=== PATIENT | female | born 1930 | race Caucasian/White ===

== ENCOUNTER 2017-02-24 09:28 | Inpatient (IN) | payer MEDICARE, OTHER ==
[2017-02-24] VITALS (11 sets, daily range): BP systolic 120–198; BP diastolic 58–90; PULSE 67–87; RESP 17–24; TEMP 98–99.7; O2SAT 95–97
[~2017-02-24] VITALS: Ht 165.1 cm; Wt 84.0 kg
[~2017-02-24 09:28] MED LIST: AMLO10 PO; CARV12.5 PO; DIGO.125 PO; GABA100C4 PO; GLUCTAB PO; LEVE500 PO; LEVO50TA51 PO; PARO10TA PO; PYRI200T4 PO
--- NOTE | 2017-02-24 09:50 | PD ---
HPI Chief Complaint: Altered Mental Status Time Seen by Provider: 09:33 Travel History International Travel<30 days: No Contact w/Intl Traveler<30days: No Traveled to known affect area: No History of Present Illness HPI 87-year-old female with history of Alzheimer's dementia, diabetes, brought in by ambulance from her retirement for evaluation of depressed mental status. Upon arrival to the emergency department the patient is awake but drowsy. She complains of feeling lousy. She also complains of having abdominal pain. She does not quantify or qualify this pain. She denies chest pain. She says yes when asked if she has shortness of breath. PFSH Past Medical History Heart Rhythm Problems: Yes High Cholesterol: Yes Congestive Heart Failure: Yes Cerebrovascular Accident: Yes Diabetes: Yes Diminished Hearing: No Hypertension: Yes Seizures: Yes Thyroid Disease: Yes Menopausal: Yes Past Surgical History Appendectomy: Yes Cholecystectomy: Yes Genitourinary Surgery: Yes (R nephrectomy) Joint Replacement: Yes ([place] knee replacement) Social History Alcohol Use: No Tobacco Use: No Substance Use: No Allergies-Medications (Allergen,Severity, Reaction): Coded Allergies: Sulfa (Sulfonamide Antibiotics) (Unverified Allergy, Severe, Hives, ) levofloxacin (Unverified Allergy, Severe, N/V, 02/24/17) pregabalin (Unverified Allergy, Intermediate, 02/24/17) Reported Meds & Prescriptions Reported Meds & Active Scripts Active Reported Risperdal (Risperidone) 0.5 Mg Tab 0.5 Mg PO HS Macrobid (Nitrofurantoin Monoh/Nitrofur Macro) 100 Mg Cap 100 Mg PO BID 7 Days Keppra (Levetiracetam) 500 Mg Tab 500 Mg PO BID Neurontin (Gabapentin) 100 Mg Cap 100 Mg PO HS Lanoxin (Digoxin) 125 Mcg Tablet 125 Mcg PO DAILY Coreg (Carvedilol) 6.25 Mg Tab 6.25 Mg PO BID Take with meals Bupropion HCl 100 Mg Tab 50 Mg PO DAILY Tramadol (Tramadol HCl) 50 Mg Tab 50 Mg PO BID PRN Milk of Magnesia Liq (Magnesium Hydroxide) 400 Mg/5 Ml Susp 30 Ml PO Q4HR PRN Tylenol (Acetaminophen) 325 Mg Tab 650 Mg PO Q4H PRN Ditropan XL 24 HR (Oxybutynin Chloride) 10 Mg Tab 10 Mg PO DAILY I-Argelia (Multiple Vitamins W/ Minerals) 1,000-60-2 Tab 1 Tab PO DAILY Namzaric (Memantine-Donepezil) 28-10 Mg Cap 1 Cap PO HS Remeron (Mirtazapine) 30 Mg Tab 30 Mg PO HS Cozaar (Losartan Potassium) 25 Mg Tab 25 Mg PO DAILY Lisinopril 10 Mg Tab 10 Mg PO DAILY Levothyroxine (Levothyroxine Sodium) 100 Mcg Tab 100 Mcg PO DAILY Lantus Inj (Insulin Glargine) 1,000 Unit/10 Ml Vial 65 Units SQ HS Novolog Inj (Insulin Aspart) 1,000 Unit/10 Ml Vial 10 Units SQ BEFORE MEALS Warfarin 10 Mg Tab 10 Mg PO SUNDAY Warfarin 5 Mg Tab 5 Mg PO Take 1 tablet (5mg) on Sunday,Sunday,Sunday,,Sunday and Sunday Imodium A-D (Loperamide HCl) 2 Mg Capsule 4 Mg PO INITIAL DOSE PRN After initial dose, give 1 cap (2mg) after each loose stool, NTE 8 caps/24hrs Glucagen Hypokit Inj Kit (Glucagon (Rdna) Inj Kit) 1 Mg Kit 1 Mg IM ONCE PRN Enema Disposable (Sodium Phosphates) 19 Gram-7 Gram/118 Ml Jennifer 1 Applic RECTAL PRN Dulcolax Supp (Bisacodyl) 10 Mg Supp 10 Mg RECTAL DAILY PRN Antacid Anti-Gas Regular Liq (Rchistyn-Amqhokcul-Jybdsyuvuld Liq) 200-200-20 Mg/ 5 Ml Susp 30 Ml PO Q4HR PRN Take between meals or as directed. Shake well. Do not exceed 120 mL/24 hrs. Xanax (Alprazolam) 0.25 Mg Tab 0.25 Mg PO TID PRN Review of Systems Except as stated in HPI: all other systems reviewed are Neg Physical Exam Narrative GENERAL: Well-developed, well-nourished, elderly-appearing female, awake, drowsy , no apparent distress. SKIN: Focused skin assessment warm/dry. Pressure sores on bilateral buttocks and sacrum, stage II, no warmth, no erythema, no purulent drainage. HEAD: Atraumatic. Normocephalic. EYES: Pupils equal and round. No scleral icterus. Bilateral purulent drainage. ENT: Mucous membranes pink and moist. NECK: Trachea midline. No JVD. No nuchal rigidity. CARDIOVASCULAR: Regular rate and rhythm. RESPIRATORY: No accessory muscle use. Clear to auscultation. Breath sounds equal bilaterally. GASTROINTESTINAL: Abdomen soft, nondistended. Mild diffuse tenderness without peritoneal signs. Normal bowel sounds. MUSCULOSKELETAL: No obvious deformities. No clubbing. No cyanosis. No edema. NEUROLOGICAL: Awake, drowsy. No obvious cranial nerve deficits. Motor grossly within normal limits. Normal speech. PSYCHIATRIC: Appropriate mood and affect; insight and judgment normal. Data Data Last Documented VS Vital Signs Date Time Temp Pulse Resp B/P (MAP) Pulse Ox O2 Delivery O2 Flow Rate FiO2 02/24/17 11:00 80 20 125/58 (80) 96 Room Air 02/24/17 09:47 2.00 02/24/17 09:35 99.7 Orders Orders Electrocardiogram (02/24/17 09:34) Complete Blood Count With Diff (02/24/17 09:34) Comprehensive Metabolic Panel (02/24/17 09:34) Prothrombin Time / Inr (Pt) (02/24/17 09:34) Act Partial Throm Time (Ptt) (02/24/17 09:34) Lactic Acid Sepsis Protocol (02/24/17 09:34) Urinalysis - C+S If Indicated (02/24/17 09:34) Influenzae A/B Antigen (02/24/17 09:34) Blood Culture (02/24/17 09:34) Chest, Single Ap (02/24/17 09:34) Ecg Monitoring (02/24/17 09:34) Iv Access Insert/Monitor (02/24/17 09:34) Oximetry (02/24/17 09:34) Ct Brain W/O Iv Contrast(Rout) (02/24/17 ) Cath For Specimen (02/24/17 09:34) Ct Abd/Pel W Iv Contrast(Rout) (02/24/17 ) Ceftriaxone Inj (Rocephin Inj) (02/24/17 10:30) Azithromycin Inj (Zithromax Inj) (02/24/17 10:30) Urine Culture (02/24/17 09:55) Iodixanol 320 Inj (Rad Ct) (Visipaque 32 (02/24/17 11:56) Lipase (02/24/17 12:31) Ceftriaxone Inj (Rocephin Inj) (02/24/17 12:45) Azithromycin Inj (Zithromax Inj) (02/24/17 12:45) Labs Laboratory Tests Test 02/24/17 09:55 White Blood Count 9.5 TH/MM3 Red Blood Count 3.50 MIL/MM3 Hemoglobin 11.3 GM/DL Hematocrit 32.7 % Mean Corpuscular Volume 93.2 FL Mean Corpuscular Hemoglobin 32.2 PG Mean Corpuscular Hemoglobin Concent 34.6 % Red Cell Distribution Width 12.8 % Platelet Count 248 TH/MM3 Mean Platelet Volume 8.1 FL Neutrophils (%) (Auto) 69.1 % Lymphocytes (%) (Auto) 21.8 % Monocytes (%) (Auto) 8.1 % Eosinophils (%) (Auto) 0.4 % Basophils (%) (Auto) 0.6 % Neutrophils # (Auto) 6.6 TH/MM3 Lymphocytes # (Auto) 2.1 TH/MM3 Monocytes # (Auto) 0.8 TH/MM3 Eosinophils # (Auto) 0.0 TH/MM3 Basophils # (Auto) 0.1 TH/MM3 CBC Comment DIFF FINAL Differential Comment Prothrombin Time 17.0 SEC Prothromb Time International Ratio 1.5 RATIO Activated Partial Thromboplast Time 28.7 SEC Urine Color YELLOW Urine Turbidity CLOUDY Urine pH 8.0 Urine Specific Dana 1.014 Urine Protein 30 mg/dL Urine Glucose (UA) NEG mg/dL Urine Ketones NEG mg/dL Urine Occult Blood SMALL Urine Nitrite NEG Urine Bilirubin NEG Urine Urobilinogen LESS THAN 2.0 MG/DL Urine Leukocyte Esterase LARGE Urine RBC 14 /hpf Urine WBC /hpf Urine WBC Clumps MANY Urine Squamous Epithelial Cells 1 /hpf Urine Triple Phosphate Crystals MANY /hpf Urine Bacteria MANY /hpf Urine Mucus MOD /lpf Microscopic Urinalysis Comment CATH-CULTURE IND Blood Urea Nitrogen 51 MG/DL Creatinine 1.44 MG/DL Random Glucose 65 MG/DL Total Protein 6.6 GM/DL Albumin 2.3 GM/DL Calcium Level 9.3 MG/DL Alkaline Phosphatase 116 U/L Aspartate Amino Transf (AST/SGOT) 75 U/L Alanine Aminotransferase (ALT/SGPT) 59 U/L Total Bilirubin 0.3 MG/DL Sodium Level 142 MEQ/L Potassium Level 4.8 MEQ/L Chloride Level 111 MEQ/L Carbon Dioxide Level 26.9 MEQ/L Anion Gap 4 MEQ/L Estimat Glomerular Filtration Rate 34 ML/MIN Lactic Acid Level 1.2 mmol/L [facility] Medical Decision Making Medical Screen Exam Complete: Yes Emergency Medical Condition: Yes Medical Record Reviewed: Yes Differential Diagnosis Sepsis, pneumonia, UTI, acute intra-abdominal process, metabolic abnormality, meningitis/encephalitis less likely Narrative Course Vital signs show heart rate 87, blood pressure 120/58, pulse ox 95% on room air , rectal temp of 99.7F. CBC: WBC 9.5, hemoglobin 11.3, hematocrit 32.7, platelets 248. CMP is remarkable for BUN 51, creatinine 1.44, GFR 34, random glucose 65, AST 75 , ALT 59. UA is grossly positive for UTI. Chest x-ray: CONCLUSION: 1. Minimal bibasilar patchiness consistent with atelectasis and/or mild developing infiltrates. Clinical correlation is recommended. 2. Degenerative changes and scoliosis of the thoracolumbar spine. CT head: CONCLUSION: 1. Diffuse cerebral atrophy. 2. Mild to moderate periventricular and subcortical white matter small vessel ischemic changes bilaterally. 3. No acute infarct, acute hemorrhage, mass effect or extra-axial fluid collections. CT abdomen pelvis: CONCLUSION: 1. Apparent dilatation of the main pancreatic duct in the region of the body and tail with focus of high density at the transition point raising the possibility of calcification or clip. Correlation with pancreatic enzymes may be helpful. 2. Uncomplicated sigmoid diverticulosis. 3. Multilevel spinal stenoses, degenerative changes and scoliosis of the lumbar spine. The patient was written for IV Rocephin and IV azithromycin. She will be admitted for further treatment and evaluation of altered mental status, UTI. Case discussed with hospitalist Dr. Fung who will admit the patient to her service. Diagnosis Primary Impression: Altered mental status Qualified Codes: R41.82 - Altered mental status, unspecified Additional Impression: UTI (urinary tract infection) Qualified Codes: N39.0 - Urinary tract infection, site not specified; R31.9 - Hematuria, unspecified Admitting Information Admitting Physician Requests: Francisco Elias MD Feb 24, 2017 09:50
--- NOTE | 2017-02-24 10:05 | RADRPT ---
EXAM DATE/TIME: 02/24/2017 09:36 [facility] COMPARISON: No previous studies available for comparison. INDICATIONS : Weakness. MEDICAL HISTORY : None. SURGICAL HISTORY : None. ENCOUNTER: Initial ACUITY: 1 day PAIN SCORE: Non-responsive. LOCATION: Bilateral chest FINDINGS: The heart and mediastinal structures are normal. Minimal bibasilar patchiness is noted consistent wi th atelectasis and/or developing infiltrates. The pulmonary vascular pattern is normal. Degenerativ e changes and scoliosis of the thoracolumbar spine are noted. CONCLUSION: 1. Minimal bibasilar patchiness consistent with atelectasis and/or mild developing infiltrates. Clin ical correlation is recommended. 2. Degenerative changes and scoliosis of the thoracolumbar spine. Emamnuel Brown MD on February 24, 2017 at 9:57 Board Certified Radiologist. This report was verified electronically.
[2017-02-24 10:15] LABS: AUTOMATED NEUTROPHIL # 6.6 TH/MM3 (1.8-7.7); BASOPHIL # 0.1 TH/MM3 (0-0.2); BASOPHIL % 0.6 % (0.0-2.0); EOSINOPHIL % 0.4 % (0.0-4.0); HEMATOCRIT 32.7 % (35.0-46.0); HEMO FLAGS DIFF FINAL; LYMPH % 21.8 % (9.0-44.0); LYMPHOCYTE # 2.1 TH/MM3 (1.0-4.8); MEAN CELL VOLUME 93.2 FL (80.0-100.0); MEAN CORPUSCULAR HEMOGLOBIN 32.2 PG (27.0-34.0); MEAN CORPUSCULAR HGB CONC 34.6 % (32.0-36.0); MONO % 8.1 % (0.0-8.0); NEUT % 69.1 % (16.0-70.0); PLATELET COUNT 248 TH/MM3 (150-450); RED CELL DISTRIBUTION WIDTH 12.8 % (11.6-17.2); WHITE BLOOD COUNT 9.5 TH/MM3 (4.0-11.0)
[2017-02-24 10:29] LABS: APTT (PATIENT) 28.7 SEC (24.3-30.1); INTERNATIONAL NORMALIZED RATIO 1.5 RATIO
[2017-02-24] MEDS ORDERED: AZITHROMYCIN INJ 500 MG in SODIUM CHLOR 0.9% 250 ML INJ 250 ML IV ONE (10:30)
[2017-02-24] MEDS ORDERED: cefTRIAXone INJ 1,000 MG in SODIUM CHLORIDE 0.9% INJ 100 ML IV ONE (10:30)
[2017-02-24 10:31] LABS: BACTERIA, URINE MANY /hpf; BLOOD, URINE SMALL (NEG); COMMENT (UR) CATH-CULTURE IND; CULTURE IF INDICATED CATH CULTURE IND; GLUCOSE,URINE NEG (NEG); KETONE, URINE NEG (NEG); MUCUS URINE MOD /lpf (OCC); NITRITE,URINE NEG (NEG); SQUAMOUS EPITHELIAL CELL URINE 1 /hpf (0-5); TRIPLE PHOSPHATE CRYSTAL,URINE MANY /hpf
[2017-02-24 10:35] LABS: URINE COLOR YELLOW (YELLW/STRAW)
[2017-02-24 10:53] LABS: ALT (GPT) 59 U/L (10-53); ANION GAP 4 MEQ/L (5-15); AST (GOT) 75 U/L (15-37); BICARBONATE 26.9 MEQ/L (21.0-32.0); BLOOD UREA NITROGEN 51 MG/DL (7-18); CHLORIDE 111 MEQ/L (98-107); GLOMERULAR FILTRATION RATE 34 ML/MIN (>89); POTASSIUM 4.8 MEQ/L (3.5-5.1); SODIUM (NA) 142 MEQ/L (136-145)
[2017-02-24 10:55] LABS: ALKALINE PHOSPHATASE 116 U/L (45-117); TOTAL BILIRUBIN ADULT 0.3 MG/DL (0.2-1.0)
[2017-02-24] MEDS ORDERED: MACR100C2 PO (11:10)
[2017-02-24] MEDS ORDERED: TRAM50TA PO (11:10)
[2017-02-24] MEDS ORDERED: REME30TA PO (11:10)
[2017-02-24] MEDS ORDERED: GLUCINJ IM (11:10)
[2017-02-24] MEDS ORDERED: BUPR100T4 PO (11:10)
[2017-02-24] MEDS ORDERED: NEUR100C PO (11:10)
[2017-02-24] MEDS ORDERED: RISP0.5T25 PO (11:10)
[2017-02-24] MEDS ORDERED: ANTASUS13 PO (11:10)
[2017-02-24] MEDS ORDERED: WARF-23 PO (11:10)
[2017-02-24] MEDS ORDERED: ALPR.25 PO (11:10)
[2017-02-24] MEDS ORDERED: LANO0.12 PO (11:10)
[2017-02-24] MEDS ORDERED: LEVE500 PO (11:10)
[2017-02-24] MEDS ORDERED: TYLE325T PO (11:10)
[2017-02-24] MEDS ORDERED: WARF-22 PO (11:10)
[2017-02-24] MEDS ORDERED: COZA25TA PO (11:10)
[2017-02-24] MEDS ORDERED: LEVO100T5 PO (11:10)
[2017-02-24] MEDS ORDERED: MEMA1CAP2 PO (11:10)
[2017-02-24] MEDS ORDERED: I-VITAB2 PO (11:10)
[2017-02-24] MEDS ORDERED: DULC10SU3 RECTAL (11:10)
[2017-02-24] MEDS ORDERED: MILKSUS PO (11:10)
[2017-02-24] MEDS ORDERED: CARV6.25 PO (11:10)
[2017-02-24] MEDS ORDERED: LOPE-1 PO (11:10)
[2017-02-24] MEDS ORDERED: LANTUS2P SQ (11:10)
[2017-02-24] MEDS ORDERED: NOVOLOGP2 SQ (11:10)
[2017-02-24] MEDS ORDERED: LISI10TA3 PO (11:10)
[2017-02-24] MEDS ORDERED: OXYBXL10 PO (11:10)
[2017-02-24] MEDS ORDERED: ENEMENE5 RECTAL (11:10)
[2017-02-24] MEDS ORDERED: IODIXANOL 320 MG/ML 10 ML VIAL (for Rad CT) IVCONTRAST ONE (11:56)
--- NOTE | 2017-02-24 12:02 | RADRPT ---
EXAM DATE/TIME: 02/24/2017 11:38 [facility] COMPARISON: No previous studies available for comparison. INDICATIONS : ALtered mental status. RADIATION DOSE: 54.84 CTDIvol (mGy) MEDICAL HISTORY : Seizures. Hypertension. SURGICAL HISTORY : Appendectomy. Cholecystectomy. ENCOUNTER: Initial ACUITY: 1 day PAIN SCALE: 0/10 LOCATION: cranial TECHNIQUE: Multiple contiguous axial images were obtained of the head. Using automated exposure control and adjustment of the mA and/or kV according to patient size, radiation dose was kept as low as reasonably achievable to obtain optimal diagnostic quality images. DICOM format image data is av ailable electronically for review and comparison. FINDINGS: CEREBRUM: Diffuse cerebral atrophy is noted. Mild to moderate periventricular and subcortical whi te matter small vessel ischemic changes are noted bilaterally. No evidence of midline shift, mass les ion, hemorrhage or acute infarction. No extra-axial fluid collections are seen. POSTERIOR FOSSA: The cerebellum and brainstem are intact. The 4th ventricle is midline. The cer ebellopontine angle is unremarkable. EXTRACRANIAL: The visualized portion of the orbits is intact. SKULL: The calvaria is intact. No evidence of skull fracture. CONCLUSION: 1. Diffuse cerebral atrophy. 2. Mild to moderate periventricular and subcortical white matter small vessel ischemic changes bilate rally. 3. No acute infarct, acute hemorrhage, mass effect or extra-axial fluid collections. Emmanuel Brown MD on February 24, 2017 at 11:58 Board Certified Radiologist. This report was verified electronically.
--- NOTE | 2017-02-24 12:22 | RADRPT ---
EXAM DATE/TIME: 02/24/2017 11:45 [facility] COMPARISON: No previous studies available for comparison. INDICATIONS : Abdomen pain. IV CONTRAST: 50 cc Visipaque (iodixanol) IV ORAL CONTRAST: No oral contrast ingested. RADIATION DOSE: 16.94 CTDIvol (mGy) MEDICAL HISTORY : Congestive heart failure. Stroke SURGICAL HISTORY : Appendectomy. Cholecystectomy. ENCOUNTER: Initial ACUITY: 1 day PAIN SCALE: 4/10 LOCATION: Bilateral abdomen. TECHNIQUE: Volumetric scanning of the abdomen and pelvis was performed. Using automated exposure control and ad justment of the mA and/or kV according to patient size, radiation dose was kept as low as reasonably achievable to obtain optimal diagnostic quality images. DICOM format image data is available electro nically for review and comparison. FINDINGS: There is apparent dilatation of the pancreatic duct in the body and tail of indeterminate etiology. There is a high density focus at the site of the dilated duct raising the possibility of calcificatio n or possible metallic clip. The remainder of the head and body of the pancreas are unremarkable. T he liver is unremarkable without focal mass or biliary ductal dilatation. The gallbladder has been r esected. The spleen is normal. The patient is status post left nephrectomy. The right kidney is un remarkable without mass or hydronephrosis. The adrenal glands are unremarkable. The abdominal aorta is calcified but is not aneurysmally dilated. The inferior vena cava is normal. There is no paraao rtic, retroperitoneal or mesenteric lymphadenopathy. Ventral abdominal wall hernia repair is noted. Degenerative changes and scoliosis of the lumbar spine are noted. Multilevel spinal stenoses are no ajith within the lumbar spine. The urinary bladder is unremarkable. No bowel obstruction is noted. U ncomplicated sigmoid diverticulosis is noted. The uterus is unremarkable. CONCLUSION: 1. Apparent dilatation of the main pancreatic duct in the region of the body and tail with focus of high density at the transition point raising the possibility of calcification or clip. Correlation w ith pancreatic enzymes may be helpful. 2. Uncomplicated sigmoid diverticulosis. 3. Multilevel spinal stenoses, degenerative changes and scoliosis of the lumbar spine. Emmanuel Brown MD on February 24, 2017 at 12:05 Board Certified Radiologist. This report was verified electronically.
[2017-02-24] MEDS ORDERED: GLUCAGON 1 MG IM PRN (12:45)
[2017-02-24] MEDS ORDERED: ACETAMINOPHEN 325 MG TAB PO PRN ×2 (12:45→13:00)
[2017-02-24] MEDS ORDERED: ALUMINUM/MAGNESIUM/SIMETH 30 ML CUP PO PRN (12:45)
[2017-02-24] MEDS ORDERED: BISACODYL 10 MG SUPP RECTAL PRN ×2 (12:45→13:00)
[2017-02-24] MEDS ORDERED: MAGNESIUM HYDROXIDE SUSP 30 ML CUP PO PRN ×2 (12:45→13:00)
[2017-02-24] MEDS ORDERED: LACTULOSE SYRUP 20 GM/30 ML CUP PO PRN (13:00)
[2017-02-24] MEDS ORDERED: SODIUM CHLORIDE 0.9% FLUSH 10 ML FLUSH IV FLUSH PRN (13:00)
[2017-02-24] MEDS ORDERED: GLUCAGON 1 MG/ML VIAL OTHER PRN (13:00)
[2017-02-24] MEDS ORDERED: NALOXONE HCL 0.4 MG/ML AMP IV PUSH PRN (13:00)
[2017-02-24] MEDS ORDERED: ONDANSETRON HCL 4 MG/2 ML VIAL IVP PRN (13:00)
[2017-02-24] MEDS ORDERED: SENNOSIDES 8.6 MG TAB PO PRN (13:00)
[2017-02-24] MEDS ORDERED: DEXTROSE 50% IN WATER 50 ML VIAL(D50) IV PUSH PRN (13:00)
[2017-02-24] MEDS ORDERED: PILL SPLITTER OTHER PRN (13:15)
--- NOTE | 2017-02-24 13:38 | HHI.HP ---
[facility] Raj[facility] Romeo M.D. Admission Diagnosis AMS, UTI Diagnoses: Chief Complaint: altered mental status Travel History International Travel<30 Days: No Contact w/Intl Traveler <30 Da: No Traveled to Known Affected Are: No History of Present Illness 87-year-old female with history of Alzheimer's dementia, diabetes, CVA, HTN, HLD , Hypothyroidism, seizure disorder who was brought to the ED by ambulance from her detention for evaluation of depressed mental status. Upon arrival to the emergency department the patient was noted awake but drowsy. She complains of feeling lousy. She also complains of having lower abdominal pain. Denies having any urinary complaints. She does not quantify or qualify this pain. She denies chest pain. She says yes when asked if she has shortness of breath. Denies having cough. No fever or chills. Says she doesn't know why she is here. Says jayant is uslually walking with a walker at the detention, but now she feels tired and can't walk. She is alert and oriented by name, , place. History obtained from patient, records. No other complaints at this time. Review of Systems ROS Limitations: Clinical Condition, Altered Mental Status Except as stated in HPI: all other systems reviewed are Neg Past Family Social History Past Medical History Alzheimer's dementia, diabetes, CVA, HTN, HLD, Hypothyroidism, seizure disorder Past Surgical History R nephrectomy, appendectomy, cholecystectomy, Bilateral knee replacement Reported Medications Reported Meds & Active Scripts Active Reported Risperdal (Risperidone) 0.5 Mg Tab 0.5 Mg PO HS Macrobid (Nitrofurantoin Monoh/Nitrofur Macro) 100 Mg Cap 100 Mg PO BID 7 Days Keppra (Levetiracetam) 500 Mg Tab 500 Mg PO BID Neurontin (Gabapentin) 100 Mg Cap 100 Mg PO HS Lanoxin (Digoxin) 125 Mcg Tablet 125 Mcg PO DAILY Coreg (Carvedilol) 6.25 Mg Tab 6.25 Mg PO BID Take with meals Bupropion HCl 100 Mg Tab 50 Mg PO DAILY Tramadol (Tramadol HCl) 50 Mg Tab 50 Mg PO BID PRN Milk of Magnesia Liq (Magnesium Hydroxide) 400 Mg/5 Ml Susp 30 Ml PO Q4HR PRN Tylenol (Acetaminophen) 325 Mg Tab 650 Mg PO Q4H PRN Ditropan XL 24 HR (Oxybutynin Chloride) 10 Mg Tab 10 Mg PO DAILY I-Argelia (Multiple Vitamins W/ Minerals) 1,000-60-2 Tab 1 Tab PO DAILY Namzaric (Memantine-Donepezil) 28-10 Mg Cap 1 Cap PO HS Remeron (Mirtazapine) 30 Mg Tab 30 Mg PO HS Cozaar (Losartan Potassium) 25 Mg Tab 25 Mg PO DAILY Lisinopril 10 Mg Tab 10 Mg PO DAILY Levothyroxine (Levothyroxine Sodium) 100 Mcg Tab 100 Mcg PO DAILY Lantus Inj (Insulin Glargine) 1,000 Unit/10 Ml Vial 65 Units SQ HS Novolog Inj (Insulin Aspart) 1,000 Unit/10 Ml Vial 10 Units SQ BEFORE MEALS Warfarin 10 Mg Tab 10 Mg PO SUNDAY Warfarin 5 Mg Tab 5 Mg PO Take 1 tablet (5mg) on Sunday,Sunday,Sunday,,Sunday and Sunday Imodium A-D (Loperamide HCl) 2 Mg Capsule 4 Mg PO INITIAL DOSE PRN After initial dose, give 1 cap (2mg) after each loose stool, NTE 8 caps/24hrs Glucagen Hypokit Inj Kit (Glucagon (Rdna) Inj Kit) 1 Mg Kit 1 Mg IM ONCE PRN Enema Disposable (Sodium Phosphates) 19 Gram-7 Gram/118 Ml Jennifer 1 Applic RECTAL PRN Dulcolax Supp (Bisacodyl) 10 Mg Supp 10 Mg RECTAL DAILY PRN Antacid Anti-Gas Regular Liq (Gpewciin-Xocbmbfar-Evqwbxvvbcc Liq) 200-200-20 Mg/ 5 Ml Susp 30 Ml PO Q4HR PRN Take between meals or as directed. Shake well. Do not exceed 120 mL/24 hrs. Xanax (Alprazolam) 0.25 Mg Tab 0.25 Mg PO TID PRN Allergies: Coded Allergies: Sulfa (Sulfonamide Antibiotics) (Unverified Allergy, Severe, Hives, ) levofloxacin (Unverified Allergy, Severe, N/V, 02/24/17) pregabalin (Unverified Allergy, Intermediate, 02/24/17) Family History Mother with diabetes, HTN, HLD Social History Denies tobacco use, EtOh use or illicit drug use Physical Exam Vital Signs Vital Signs Date Time Temp Pulse Resp B/P (MAP) Pulse Ox O2 Delivery O2 Flow Rate FiO2 02/24/17 11:00 80 20 125/58 (80) 96 Room Air 02/24/17 09:47 98 24 98 Nasal Cannula 2.00 02/24/17 09:46 95 Room Air 02/24/17 09:35 99.7 87 24 120/58 (78) 95 Physical Exam GENERAL: This is a well-nourished, well-developed patient, in no apparent distress. SKIN: No rashes, ecchymoses or lesions. Cool and dry. HEAD: Atraumatic. Normocephalic. No temporal or scalp tenderness. EYES: Pupils equal round and reactive. Extraocular motions intact. No scleral icterus. No injection or drainage. ENT: Nose without bleeding, purulent drainage or septal hematoma. Throat without erythema, tonsillar hypertrophy or exudate. Uvula midline. Airway patent. NECK: Trachea midline. No JVD or lymphadenopathy. Supple, nontender, no meningeal signs. CARDIOVASCULAR: Regular rate and rhythm without murmurs, gallops, or rubs. RESPIRATORY: Clear to auscultation. Breath sounds equal bilaterally. No wheezes , rales, or rhonchi. GASTROINTESTINAL: Abdomen soft, non-tender, nondistended. No hepato-splenomegaly , or palpable masses. No guarding. MUSCULOSKELETAL: Extremities without clubbing, cyanosis, or edema. No joint tenderness, effusion, or edema noted. No calf tenderness. Negative Homans sign bilaterally. NEUROLOGICAL: Awake and alert. Cranial nerves II through XII intact. Motor and sensory grossly within normal limits. Five out of 5 muscle strength in all muscle groups. Normal speech. Laboratory Laboratory Tests Test 02/24/17 09:55 White Blood Count 9.5 Red Blood Count 3.50 Hemoglobin 11.3 Hematocrit 32.7 Mean Corpuscular Volume 93.2 Mean Corpuscular Hemoglobin 32.2 Mean Corpuscular Hemoglobin Concent 34.6 Red Cell Distribution Width 12.8 Platelet Count 248 Mean Platelet Volume 8.1 Neutrophils (%) (Auto) 69.1 Lymphocytes (%) (Auto) 21.8 Monocytes (%) (Auto) 8.1 Eosinophils (%) (Auto) 0.4 Basophils (%) (Auto) 0.6 Neutrophils # (Auto) 6.6 Lymphocytes # (Auto) 2.1 Monocytes # (Auto) 0.8 Eosinophils # (Auto) 0.0 Basophils # (Auto) 0.1 CBC Comment DIFF FINAL Differential Comment Prothrombin Time 17.0 Prothromb Time International Ratio 1.5 Activated Partial Thromboplast Time 28.7 Urine Color YELLOW Urine Turbidity CLOUDY Urine pH 8.0 Urine Specific [place] 1.014 Urine Protein 30 Urine Glucose (UA) NEG Urine Ketones NEG Urine Occult Blood SMALL Urine Nitrite NEG Urine Bilirubin NEG Urine Urobilinogen LESS THAN 2.0 Urine Leukocyte Esterase LARGE Urine RBC 14 Urine WBC Urine WBC Clumps MANY Urine Squamous Epithelial Cells 1 Urine Triple Phosphate Crystals MANY Urine Bacteria MANY Urine Mucus MOD Microscopic Urinalysis Comment CATH-CULTURE IND Blood Urea Nitrogen 51 Creatinine 1.44 Random Glucose 65 Total Protein 6.6 Albumin 2.3 Calcium Level 9.3 Alkaline Phosphatase 116 Aspartate Amino Transf (AST/SGOT) 75 Alanine Aminotransferase (ALT/SGPT) 59 Total Bilirubin 0.3 Sodium Level 142 Potassium Level 4.8 Chloride Level 111 Carbon Dioxide Level 26.9 Anion Gap 4 Estimat Glomerular Filtration Rate 34 Lactic Acid Level 1.2 Lipase 70 Date/Time Source Procedure Growth Status 02/24/17 09:55 Blood Peripheral Aerobic Blood Culture Pending Received 02/24/17 09:55 Blood Peripheral Anaerobic Blood Culture Pending Received 02/24/17 10:05 Nasal Washing Influenza Types A,B Antigen (TARYN) - Final NEGATIVE FOR FLU A AND B ANTIGEN.... Complete 02/24/17 09:55 Urine Catheterized Urine Urine Culture Pending Received Result Diagram: 02/24/17 0955 02/24/1755 Imaging Last Impressions Chest X-Ray 02/24/17 0934 Signed Impressions: Service Date/Time: Friday, February 24, 2017 09:36 - CONCLUSION: 1. Minimal bibasilar patchiness consistent with atelectasis and/or mild developing infiltrates. Clinical correlation is recommended. 2. Degenerative changes and scoliosis of the thoracolumbar spine. Emmanuel Brown MD Head CT 02/24/17 0000 Signed Impressions: Service Date/Time: Friday, February 24, 2017 11:38 - CONCLUSION: 1. Diffuse cerebral atrophy. 2. Mild to moderate periventricular and subcortical white matter small vessel ischemic changes bilaterally. 3. No acute infarct, acute hemorrhage, mass effect or extra-axial fluid collections. MD Jc Carter VTE Risk Assessment Capestheri VTE Risk Assessment: Mod/High Risk (score >= 2) Caprini Risk Assessment Model Point Value = 1 Point Value = 2 Point Value = 3 Point Value = 5 Age 41-60 Minor surgery BMI > 25 kg/m2 Swollen legs Varicose veins or History of unexplained or recurrent spontaneous Oral contraceptives or hormone replacement Sepsis (< 1 month) Serious lung disease, including pneumonia (< 1 month) Abnormal pulmonary function Acute myocardial infarction Congestive heart failure (< 1 month) History of inflammatory bowel disease Medical patient at bed rest Age 61-74 Arthroscopic surgery Major open surgery (> 45 min) Laparoscopic surgery (> 45 min) Malignancy Confined to bed (> 72 hours) Immobilizing plaster cast Central venous access Age >= 75 History of VTE Family history of VTE Factor V Leiden Prothrombin [id number] Lupus anticoagulant Anticardiolipin antibodies Elevated serum homocysteine Heparin-induced thrombocytopenia Other congenital or acquired thrombophilia Stroke (< 1 month) Elective arthroplasty Hip, pelvis, or leg fracture Acute spinal cord injury (< 1 month) Prophylaxis Regimen Total Risk Factor Score Risk Level Prophylaxis Regimen 0-1 Low Early ambulation 2 Moderate Order ONE of the following: *Sequential Compression Device (SCD) *Heparin 5000 units SQ BID 3-4 Higher Order ONE of the following medications: *Heparin 5000 units SQ TID *Enoxaparin/Lovenox 40 mg SQ daily (WT < 150 kg, CrCl > 30 mL/min) *Enoxaparin/Lovenox 30 mg SQ daily (WT < 150 kg, CrCl > 10-29 mL/min) *Enoxaparin/Lovenox 30 mg SQ BID (WT < 150 kg, CrCl > 30 mL/min) AND/OR *Sequential Compression Device (SCD) 5 or more Highest Order ONE of the following medications: *Heparin 5000 units SQ TID (Preferred with Epidurals) *Enoxaparin/Lovenox 40 mg SQ daily (WT < 150 kg, CrCl > 30 mL/min) *Enoxaparin/Lovenox 30 mg SQ daily (WT < 150 kg, CrCl > 10-29 mL/min) *Enoxaparin/Lovenox 30 mg SQ BID (WT < 150 kg, CrCl > 30 mL/min) AND *Sequential Compression Device (SCD) Assessment and Plan Assessment and Plan Acute encephalopathy 2/2 infection Pneumonia UTI DONOVAN/ dehydration No signs of sepsis UA is grossly positive for UTI. Chest x-ray reviewed minimal bibasilar patchiness poss mild developing infiltrates. Scoliosis of the thoracolumbar spine CT head reviewed with diffuse cerebral atrophy. Mild to moderate periventricular. CT head reviewed diffuse cerebral atrophy. No acute infarct, no hemorrhage. Mild to moderate periventricular and subcortical white matter vessel ischemic changes bilaterally. CT abdomen and pelvis reviewed dilatation of the main pancreatic duct in the region of the body and tail focus of hyperdensity of the transition point raising the possibility of calcification or click. ACUTE sigmoid diverticulosis. Multilevel spinal stenosis, degenerative changes and scoliosis of the lumbar spine. Urine cultures are pending. Blood cultures sent and pending Started on Rocephin and azithromycin IV antibiotics. Oxygen supplement if needed, keep oxygen saturation more than 94%. Monitor vital signs closely Start gentle IV fluids, monitor kidney function, avoid nephrotoxins Selective old Resume home medications. Patient is also on Coumadin and monitor INR level History of CVA and seizures. Resume home medications Diabetes mellitus insulin-dependent restart home Levemir, insulin sliding scale , Accu-Cheks. Monitor blood sugar closely and adjust insulin as needed. Hypothyroidism. Resume home medications DVT prophylaxis patient is on Coumadin and monitor INR. Discussed Condition With Patient, nurse, ED physician Dimple Campbell MD Feb 24, 2017 13:37
[2017-02-24] MEDS: WARFARIN SOD 5 MG TAB PO SCH (15:12)
[2017-02-24] MEDS: SODIUM CHLOR 0.9% 1000 ML INJ 1,000 ML IV SCH (15:13)
[2017-02-24] MEDS: INSULIN ASPART SUPPLEMENTAL SCALE SQ SCH ×2 (17:00→20:58)
[2017-02-24] MEDS: cloNIDine HCL 0.1 MG TAB PO PRN (17:49)
[2017-02-24] MEDS ORDERED: hydrALAZINE HCL 20 MG/ML VIAL IV PUSH PRN (18:15)
[2017-02-24] MEDS ORDERED: hydrALAZINE HCL 50 MG TAB PO ONE (19:30)
[2017-02-24] MEDS: SODIUM CHLORIDE 0.9% FLUSH 10 ML FLUSH IV FLUSH SCH (20:35)
[2017-02-24] MEDS ORDERED: INSULIN DETEMIR 100 UNITS/ML VIAL SQ SCH (21:00)
[2017-02-24] MEDS ORDERED: INSULIN GLARGINE 1,000 UNITS/10 ML VIAL SQ SCH (21:00)
[2017-02-24] MEDS ORDERED: [UNRECOGNIZED DRUG - OTHER] PO SCH (21:00)
[2017-02-24] MEDS ORDERED: MEMANTINE DONEPEZIL PO SCH (21:00)
[2017-02-24] MEDS: GABAPENTIN 100 MG CAP PO SCH (21:35)
[2017-02-24] MEDS: CARVEDILOL 6.25 MG TAB PO SCH (21:35)
[2017-02-24] MEDS: DOCUSATE SODIUM 50 MG/SENNA 8.6 MG TAB PO SCH (21:35)
[2017-02-24] MEDS: levETIRAcetam 500 MG TAB PO SCH (21:35)
[2017-02-24] MEDS: risperiDONE 0.5 MG TAB PO SCH (21:35)
[2017-02-24] MEDS: MIRTAZAPINE ODT 30 MG TAB PO SCH (21:47)
[2017-02-25] VITALS (10 sets, daily range): BP systolic 156–194; BP diastolic 64–88; PULSE 53–78; RESP 14–20; TEMP 97–98.4; O2SAT 93–97
[2017-02-25] MEDS: SODIUM CHLOR 0.9% 1000 ML INJ 1,000 ML IV SCH ×2 (04:35→21:40)
[2017-02-25] MEDS: LEVOTHYROXINE SODIUM 100 MCG TAB PO SCH (06:03)
[2017-02-25 07:01] LABS: AUTOMATED NEUTROPHIL # 8.9 TH/MM3 (1.8-7.7); BASOPHIL # 0.1 TH/MM3 (0-0.2); BASOPHIL % 0.7 % (0.0-2.0); EOSINOPHIL # 0.1 TH/MM3 (0-0.4); EOSINOPHIL % 0.5 % (0.0-4.0); HEMATOCRIT 35.3 % (35.0-46.0); HEMO FLAGS DIFF FINAL; LYMPH % 21.8 % (9.0-44.0); LYMPHOCYTE # 2.7 TH/MM3 (1.0-4.8); MEAN CELL VOLUME 94.3 FL (80.0-100.0); MEAN CORPUSCULAR HGB CONC 33.9 % (32.0-36.0); MONO % 5.6 % (0.0-8.0); NEUT % 71.4 % (16.0-70.0); PLATELET COUNT 274 TH/MM3 (150-450); RED BLOOD COUNT 3.74 MIL/MM3 (4.00-5.30); WHITE BLOOD COUNT 12.5 TH/MM3 (4.0-11.0)
[2017-02-25 07:34] LABS: BICARBONATE 26.1 MEQ/L (21.0-32.0); POTASSIUM 4.5 MEQ/L (3.5-5.1)
[2017-02-25] MEDS ORDERED: DEXTROSE 50% IN WATER 50 ML SYRINGE ONE (07:46)
[2017-02-25] MEDS: INSULIN ASPART SUPPLEMENTAL SCALE SQ SCH ×4 (08:00→21:34)
[2017-02-25] MEDS: DIGOXIN 0.125 MG TAB PO SCH ×2 (09:00→09:03)
[2017-02-25] MEDS: levETIRAcetam 500 MG TAB PO SCH ×2 (09:03→21:32)
[2017-02-25] MEDS: DOCUSATE SODIUM 50 MG/SENNA 8.6 MG TAB PO SCH ×2 (09:03→21:30)
[2017-02-25] MEDS: TOLTERODINE TARTRATE 4 MG CAP LA PO SCH (09:03)
[2017-02-25] MEDS: buPROPion HCL 100 MG TAB PO SCH (09:03)
[2017-02-25] MEDS: LOSARTAN 25 MG TAB PO SCH (09:03)
[2017-02-25] MEDS: CARVEDILOL 6.25 MG TAB PO SCH ×2 (09:03→21:31)
[2017-02-25] MEDS: SODIUM CHLORIDE 0.9% FLUSH 10 ML FLUSH IV FLUSH SCH ×2 (09:04→21:00)
[2017-02-25] MEDS ORDERED: DEXTROSE 50% IN WATER 50 ML VIAL(D50) IV PUSH PRN (11:00)
[2017-02-25] MEDS ORDERED: GLUCAGON 1 MG/ML VIAL OTHER PRN (11:00)
[2017-02-25] MEDS: cefTRIAXone INJ 1,000 MG in SODIUM CHLORIDE 0.9% INJ 100 ML IV SCH (11:33)
[2017-02-25] MEDS: AZITHROMYCIN INJ 500 MG in SODIUM CHLOR 0.9% 250 ML INJ 250 ML IV SCH (12:00)
[2017-02-25] MEDS: cloNIDine HCL 0.1 MG TAB PO PRN ×2 (13:19→21:31)
--- NOTE | 2017-02-25 13:27 | HHI.PR ---
Subjective Remarks No acute events overnight. Patient seen in room with her family who state she is doing better today. Patient complains of severe chills and fatigue. Per family, the patient's mental status has improved however she is not back to baseline. Objective Vitals Vital Signs Date Time Temp Pulse Resp B/P (MAP) Pulse Ox O2 Delivery O2 Flow Rate FiO2 02/25/17 08:09 97.0 62 20 173/64 (100) 96 02/25/17 04:00 98.1 60 16 174/77 (109) 95 02/25/17 00:00 98.2 64 14 156/69 (98) 97 02/24/17 22:27 67 02/24/17 22:00 Room Air 02/24/17 19:58 97 02/24/17 19:35 98.0 67 18 172/64 (100) 97 02/24/17 18:57 67 185/77 (113) Manual Cuff/Auscultation 02/24/17 17:57 198/90 (126) 02/24/17 15:01 98.6 68 18 178/64 (102) 96 02/24/17 14:00 02/24/17 13:44 95 21 02/24/17 13:30 72 17 170/70 (103) 96 Room Air I/O 02/24/17 02/24/17 02/24/17 02/25/17 02/25/17 02/25/17 07:00 15:00 23:00 07:00 15:00 23:00 Intake Total 350 ml 1108 ml Balance 350 ml 1108 ml Intake IV Total 350 ml 1108 ml # Voids 2 # Bowel Movements 1 Result Diagram: 02/25/1715 02/25/17614 Objective Remarks GENERAL: Elderly woman lying in bed SKIN: No rashes, ecchymoses or lesions. Cool and dry. HEAD: Atraumatic. Normocephalic. No temporal or scalp tenderness. EYES: Left pupil sluggish. Right eye with injection ENT: Nose without bleeding, purulent drainage or septal hematoma. Throat without erythema, tonsillar hypertrophy or exudate. Uvula midline. Airway patent. NECK: Trachea midline. No JVD or lymphadenopathy. Supple, nontender, no meningeal signs. CARDIOVASCULAR: Regular rate and rhythm without murmurs, gallops, or rubs. RESPIRATORY: Equal bilateral breath sounds with poor air movement. GASTROINTESTINAL: Abdomen soft, non-tender, nondistended. No hepato-splenomegaly , or palpable masses. No guarding. MUSCULOSKELETAL: Extremities without clubbing, cyanosis, or edema. No joint tenderness, effusion, or edema noted. No calf tenderness. Negative Homans sign bilaterally. NEUROLOGICAL: Intermittently attentive. Able to answer questions and follow commands. A/P Assessment and Plan 1. UTI -Urine culture positive for GNRs -Rocephin -Follow culture 2. Possible early PNA -Chest x-ray reviewed minimal bibasilar patchiness poss mild developing infiltrates. Scoliosis of the thoracolumbar spine -DuoNebs for poor air movement -Azithro/Rocephin -IS -Supplemental O2 prn 3. AMS -Likely 2/2 acute infection. Also concern for polypharmacy with Restoril recently added to patient's home medication regimen -Improving with abx -CT head reviewed diffuse cerebral atrophy. No acute infarct, no hemorrhage. Mild to moderate periventricular and subcortical white matter vessel ischemic changes bilaterally. -CT abdomen and pelvis reviewed dilatation of the main pancreatic duct in the region of the body and tail focus of hyperdensity of the transition point raising the possibility of calcification or clip. Sigmoid diverticulosis. Multilevel spinal stenosis, degenerative changes and scoliosis of the lumbar spine. 4. DONOVAN -Gentle hydration -Follow renal function -Monitor for signs of volume overload 5. Vision loss -Patient has been unable to see out of her left eye x 1 week -C/o blurry vision right eye with injection -Consult optho, appreciate recommendations 6. Prophylaxis -On Warfarin Discharge Planning Pending culture results and continued clinical improvement Desiree Pike MD Feb 25, 2017 13:27
[2017-02-25] MEDS: WARFARIN SOD 5 MG TAB PO SCH (18:31)
[2017-02-25] MEDS: RESP: ALBUTEROL 2.5 MG/IPRATROPIUM 0.5 MG NEB (SCH) NEB ×2 (18:37→20:54)
--- NOTE | 2017-02-25 20:57 | EKG ---
Date Performed: 02/24/2017 Time Performed: 10:12:35 PTAGE: 87 years EKG: Sinus rhythm MARKED LEFT AXIS DEVIATION PATTERN CONSISTENT WITH PULMONARY DISEASE MODERATE INTRAVENTRICULAR CONDU CTION DELAY NONSPECIFIC ST & T-WAVE ABNORMALITY ABNORMAL ECG PREVIOUS TRACING : 11/01/2010 17.22 DOCTOR: Kevin Dai Interpretating Date/Time 02/25/2017 20:50:37
[2017-02-25] MEDS: risperiDONE 0.5 MG TAB PO SCH (21:32)
[2017-02-25] MEDS: INSULIN DETEMIR 100 UNITS/ML VIAL SQ SCH (21:33)
[2017-02-25] MEDS: MIRTAZAPINE ODT 30 MG TAB PO SCH (21:33)
[2017-02-25] MEDS: GABAPENTIN 100 MG CAP PO SCH (21:33)
[2017-02-26] VITALS (10 sets, daily range): BP systolic 143–175; BP diastolic 62–80; PULSE 64–84; RESP 18–19; TEMP 97.8–98.8; O2SAT 94–98
[2017-02-26] MEDS: cloNIDine HCL 0.1 MG TAB PO PRN ×2 (04:56→14:59)
[2017-02-26] MEDS: LEVOTHYROXINE SODIUM 100 MCG TAB PO SCH (04:58)
[2017-02-26 07:09] LABS: AUTOMATED NEUTROPHIL # 4.4 TH/MM3 (1.8-7.7); BASOPHIL % 0.6 % (0.0-2.0); EOSINOPHIL # 0.1 TH/MM3 (0-0.4); HEMATOCRIT 29.6 % (35.0-46.0); HEMO FLAGS DIFF FINAL; LYMPH % 31.2 % (9.0-44.0); LYMPHOCYTE # 2.4 TH/MM3 (1.0-4.8); MEAN CELL VOLUME 94.7 FL (80.0-100.0); MEAN CORPUSCULAR HEMOGLOBIN 32.1 PG (27.0-34.0); MEAN CORPUSCULAR HGB CONC 33.9 % (32.0-36.0); MONO % 9.2 % (0.0-8.0); PLATELET COUNT 199 TH/MM3 (150-450); RED BLOOD COUNT 3.12 MIL/MM3 (4.00-5.30); RED CELL DISTRIBUTION WIDTH 12.9 % (11.6-17.2); WHITE BLOOD COUNT 7.7 TH/MM3 (4.0-11.0)
[2017-02-26 07:47] LABS: BICARBONATE 23.7 MEQ/L (21.0-32.0); POTASSIUM 4.8 MEQ/L (3.5-5.1)
[2017-02-26] MEDS: INSULIN ASPART SUPPLEMENTAL SCALE SQ SCH ×4 (08:00→21:00)
[2017-02-26] MEDS: RESP: ALBUTEROL 2.5 MG/IPRATROPIUM 0.5 MG NEB (SCH) NEB ×4 (08:04→19:59)
[2017-02-26] MEDS: LOSARTAN 25 MG TAB PO SCH (09:00)
[2017-02-26] MEDS: SODIUM CHLORIDE 0.9% FLUSH 10 ML FLUSH IV FLUSH SCH ×2 (09:00→21:10)
[2017-02-26] MEDS: buPROPion HCL 100 MG TAB PO SCH (09:56)
[2017-02-26] MEDS: levETIRAcetam 500 MG TAB PO SCH ×2 (09:57→21:10)
[2017-02-26] MEDS: CARVEDILOL 6.25 MG TAB PO SCH ×2 (09:57→21:10)
[2017-02-26] MEDS: DIGOXIN 0.125 MG TAB PO SCH (09:57)
[2017-02-26] MEDS: DOCUSATE SODIUM 50 MG/SENNA 8.6 MG TAB PO SCH ×2 (09:57→21:10)
[2017-02-26] MEDS: TOLTERODINE TARTRATE 4 MG CAP LA PO SCH (09:57)
[2017-02-26] MEDS: cefTRIAXone INJ 1,000 MG in SODIUM CHLORIDE 0.9% INJ 100 ML IV SCH (10:55)
[2017-02-26] MEDS: AZITHROMYCIN INJ 500 MG in SODIUM CHLOR 0.9% 250 ML INJ 250 ML IV SCH (12:00)
--- NOTE | 2017-02-26 12:12 | PD.CONS ---
History of Present Illness Service Ophthalmology Consult Requested By Reason for Consult decreased vision left eye Primary Care Physician Rajendra Romeo M.D. Diagnoses: History of Present Illness 87 yo WF with h/o of Alzheimer's dementia, diabetes, CVA, HTN, HLD, Hypothyroidism, seizure disorder brought to the ED by ambulance from her [facility] for evaluation of depressed mental status. Currently being treated for UTI/early PNA with antibiotics. Daughter at bedside states the patient has had 1 month history of decreased vision in the left eye. Ocular history significant for cataract surgery OU. She last saw Retina specialist Dr. Ross - will attempt to obtain records. Past Family Social History Allergies: Coded Allergies: Sulfa (Sulfonamide Antibiotics) (Unverified Allergy, Severe, Hives, ) levofloxacin (Unverified Allergy, Severe, N/V, 02/24/17) pregabalin (Unverified Allergy, Intermediate, 02/24/17) Physical Exam Vital Signs Vital Signs Date Time Temp Pulse Resp B/P (MAP) Pulse Ox O2 Delivery O2 Flow Rate FiO2 02/26/17 08:07 98 02/26/17 08:00 97.8 72 18 165/70 (101) 98 02/26/17 04:00 97.9 75 18 175/74 (107) 96 02/26/17 00:00 98.0 77 19 143/67 (92) 94 02/25/17 20:15 Room Air 02/25/17 20:15 78 02/25/17 20:00 98.4 78 18 190/79 (116) 96 02/25/17 18:37 93 21 02/25/17 16:09 97.5 77 19 164/70 (101) 96 02/25/17 13:27 96 02/25/17 12:09 97.6 62 20 194/88 (123) 97 Physical Exam Va cc at near OD 20/40, OS 20/200 EOM full OU, no diplopia CVF unable due to mental status Pupils 1mm OU, difficult to assess for APD IOP normal to palpation OU Anterior exam OD - eyelid crusting, conj injection and mucous discharge, K clear, AC deep, pupil round, PCIOL OS - eyelid crusting, conj injection and mucous discharge, K clear, AC deep, pupil round, PCIOL Dilated exam OD - ON s/p/f, ves normal, macula - geographic atrophy, vit clear, retina flat OS - ON s/p/f, ves normal, macula - geographic atrophy, vit clear, retina flat Laboratory Laboratory Tests Test 02/26/17 05:48 White Blood Count 7.7 Red Blood Count 3.12 Hemoglobin 10.0 Hematocrit 29.6 Mean Corpuscular Volume 94.7 Mean Corpuscular Hemoglobin 32.1 Mean Corpuscular Hemoglobin Concent 33.9 Red Cell Distribution Width 12.9 Platelet Count 199 Mean Platelet Volume 8.7 Neutrophils (%) (Auto) 58.0 Lymphocytes (%) (Auto) 31.2 Monocytes (%) (Auto) 9.2 Eosinophils (%) (Auto) 1.0 Basophils (%) (Auto) 0.6 Neutrophils # (Auto) 4.4 Lymphocytes # (Auto) 2.4 Monocytes # (Auto) 0.7 Eosinophils # (Auto) 0.1 Basophils # (Auto) 0.0 CBC Comment DIFF FINAL Differential Comment Blood Urea Nitrogen 37 Creatinine 1.13 Random Glucose 249 Calcium Level 8.7 Sodium Level 138 Potassium Level 4.8 Chloride Level 107 Carbon Dioxide Level 23.7 Anion Gap 7 Estimat Glomerular Filtration Rate 45 Date/Time Source Procedure Growth Status 02/24/17 09:55 Blood Peripheral Aerobic Blood Culture - Preliminary NO GROWTH IN 2 DAYS Resulted 02/24/17 09:55 Blood Peripheral Anaerobic Blood Culture - Preliminary NO GROWTH IN 2 DAYS Resulted 02/24/17 10:05 Nasal Washing Influenza Types A,B Antigen (TARYN) - Final NEGATIVE FOR FLU A AND B ANTIGEN.... Complete 02/24/17 09:55 Urine Catheterized Urine Urine Culture - Final Proteus Mirabilis Complete Result Diagram: 02/26/1748 02/26/17547 Assessment and Plan Problem List: (1) Conjunctivitis ICD Codes: H10.9 - Unspecified conjunctivitis Plan: Start TobraDex drops QID OU. (2) Macular degeneration, age related, nonexudative ICD Codes: H35.3190 - Nonexudative age-related macular degeneration, unspecified eye, stage unspecified Plan: Seen on dilated exam today. Obtained records from Dr. Ross - last visit was 03/2016 - also had diagnosis of dry macular degeneration OU at that time. Most likely cause of decreased vision. Advised family that there is no treatment for dry macular degeneration - can take AREDS2 vitamins to slow down the progression. Problem Qualifiers (1) Conjunctivitis: Qualified Codes: H10.33 - Unspecified acute conjunctivitis, bilateral Ronit Romeo MD Feb 26, 2017 12:12
--- NOTE | 2017-02-26 13:49 | HHI.PR ---
Subjective Remarks Pt states she is not feeling well. has trouble seeing through her eyes. no chest pain, SOB, nausea or vomiting. wants to sleep Objective Vitals Vital Signs Date Time Temp Pulse Resp B/P (MAP) Pulse Ox O2 Delivery O2 Flow Rate FiO2 02/26/17 12:00 98.8 71 18 150/68 (95) 95 02/26/17 08:07 98 02/26/17 08:00 97.8 72 18 165/70 (101) 98 02/26/17 04:00 97.9 75 18 175/74 (107) 96 02/26/17 00:00 98.0 77 19 143/67 (92) 94 02/25/17 20:15 Room Air 02/25/17 20:15 78 02/25/17 20:00 98.4 78 18 190/79 (116) 96 02/25/17 18:37 93 21 02/25/17 16:09 97.5 77 19 164/70 (101) 96 I/O 02/25/17 02/25/17 02/25/17 02/26/17 02/26/17 02/26/17 07:00 15:00 23:00 07:00 15:00 23:00 Intake Total 1108 ml 350 ml 817 ml 1251 ml Balance 1108 ml 350 ml 817 ml 1251 ml Intake Oral 180 ml 650 ml IV Total 1108 ml 350 ml 637 ml 601 ml # Voids 2 3 3 # Bowel Movements 1 2 Result Diagram: 02/26/17 0548 02/26/17 0548 Imaging Last Impressions Chest X-Ray 02/24/17 0934 Signed Impressions: Service Date/Time: Friday, February 24, 2017 09:36 - CONCLUSION: 1. Minimal bibasilar patchiness consistent with atelectasis and/or mild developing infiltrates. Clinical correlation is recommended. 2. Degenerative changes and scoliosis of the thoracolumbar spine. Emmanuel Brown MD Head CT 02/24/17 0000 Signed Impressions: Service Date/Time: Friday, February 24, 2017 11:38 - CONCLUSION: 1. Diffuse cerebral atrophy. 2. Mild to moderate periventricular and subcortical white matter small vessel ischemic changes bilaterally. 3. No acute infarct, acute hemorrhage, mass effect or extra-axial fluid collections. Emmanuel Brown MD Abdomen/Pelvis CT 02/24/17 0000 Signed Impressions: Service Date/Time: Friday, February 24, 2017 11:45 - CONCLUSION: 1. Apparent dilatation of the main pancreatic duct in the region of the body and tail with focus of high density at the transition point raising the possibility of calcification or clip. Correlation with pancreatic enzymes may be helpful. 2. Uncomplicated sigmoid diverticulosis. 3. Multilevel spinal stenoses, degenerative changes and scoliosis of the lumbar spine. Emmanuel Brown MD Objective Remarks GENERAL: Elderly woman lying in bed EYES: Right eye with injection and some noted on the left, some secretions noted ENT: Nose without drainage. Airway patent. NECK: Trachea midline. No JVD or lymphadenopathy. Supple, nontender, no meningeal signs. CARDIOVASCULAR: Regular rate and rhythm without murmurs RESPIRATORY: Equal bilateral breath sounds with poor air movement. GASTROINTESTINAL: Abdomen soft, non-tender, nondistended. No guarding. MUSCULOSKELETAL: Extremities without edema.No calf tenderness. NEUROLOGICAL: Intermittently attentive. Able to answer questions and follow commands. A/P Assessment and Plan 1. UTI -Urine culture positive for proteus mirabilis -sensitive to Rocephin 2. Possible early PNA -Chest x-ray reviewed minimal bibasilar patchiness poss mild developing infiltrates. Scoliosis of the thoracolumbar spine -DuoNebs for poor air movement -Azithro/Rocephin -IS every hour while awake -Supplemental O2 prn 3. AMS -Likely 2/2 acute infection. Also concern for polypharmacy with Restoril recently added to patient's home medication regimen -Improving with abx -CT head reviewed diffuse cerebral atrophy. No acute infarct, no hemorrhage. Mild to moderate periventricular and subcortical white matter vessel ischemic changes bilaterally. -CT abdomen and pelvis reviewed dilatation of the main pancreatic duct in the region of the body and tail focus of hyperdensity of the transition point raising the possibility of calcification or clip. Sigmoid diverticulosis. Multilevel spinal stenosis, degenerative changes and scoliosis of the lumbar spine. 4. DONOVAN -Gentle hydration -Follow renal function -Monitor for signs of volume overload 5. Vision loss -ophthalmology evaluated the patient. Final report still pending, however per their note, " patient has had 1 month history of decreased vision in the left eye". prescription was ordered for tobradex. Appreciate assistance. 6. Prophylaxis -On Warfarin Discharge Planning Pt continues not to feel well. continue to monitor. Re-evaluate in AM Rosa Elena Amin MD Feb 26, 2017 13:49
--- NOTE | 2017-02-26 15:05 | PD.WCN.NOT ---
Wound Consult Description: Received consult for pressure ulcer on sacrum and L heel from MAYELIN Alejo Communicated with: RN Rcahna [address] [place] [address] and Doctor Amin Recommendation: 1.Please cleanse buttock, sacral and coccyx areas gently with soap and water and pat dry before applying thick layer of Calazime barrier cream BID and PRN. Please do not scrub barrier cream off of skin when cleaning patient, ok to leave some cream in place and layer barrier cream. Leave wounds open to air. 2.Please obtain [place] [facility] bed or if not available obtain K-4 bed from [facility]. 3. Please pain L heel DTI with povidone-iodine BID and leave open to air. 4. Please apply heel raiser boots on patient. Additional Information: Patient seen on [address] [place] [address] for evaluation of Sacral and L heel wounds. L heel presents with firm non blanchable purple discoloration, indicating deep tissue injury. Wound measures 2.3cm x 2.2cm. Sprayed wound with skin prep and left open to air. Floated heel on a pillow. Patient was then turned with maximum assistance of conventional mortgage underwriter and family members to L side. Buttock area presents with denuded blanchable erythematous skin and scattered partial thickness skin loss that appears moisture related. Small wound full thickness wound is noted to coccyx area. Wound bed presents with ~20% dark red tissue, ~30% pink tissue and ~50% adherent yellow slough. Wound has no active drainage or odor. Wound measures 1.2 cm x 0.5cm x slough.Presence of 50% slough indicates unstageable wound Cleansed wound with normal saline and pat dry. Due to the condition of periwound, do not recommend dressing at this time.Patient positioned to L side to offload pressure from coccyx area. Esther Grimes [facility] Feb 26, 2017 15:05
[2017-02-26] MEDS: WARFARIN SOD 5 MG TAB PO SCH (18:59)
[2017-02-26] MEDS: SODIUM CHLOR 0.9% 1000 ML INJ 1,000 ML IV SCH (19:32)
[2017-02-26] MEDS: MIRTAZAPINE ODT 30 MG TAB PO SCH (21:00)
[2017-02-26] MEDS: INSULIN DETEMIR 100 UNITS/ML VIAL SQ SCH (21:09)
[2017-02-26] MEDS: risperiDONE 0.5 MG TAB PO SCH (21:10)
[2017-02-26] MEDS: GABAPENTIN 100 MG CAP PO SCH (21:10)
[2017-02-26] MEDS: TOBRAMYCIN 0.3%/DEXAMETHASONE 0.1% OPHT SUSP 5 ML BTL EACH EYE SCH (21:14)
[2017-02-27] VITALS (10 sets, daily range): BP systolic 164–196; BP diastolic 71–81; PULSE 64–82; RESP 18–20; TEMP 97.5–98.6; O2SAT 92–96
[2017-02-27] MEDS: LEVOTHYROXINE SODIUM 100 MCG TAB PO SCH (05:43)
[2017-02-27] MEDS: RESP: ALBUTEROL 2.5 MG/IPRATROPIUM 0.5 MG NEB (SCH) NEB ×4 (07:41→19:48)
[2017-02-27] MEDS: INSULIN ASPART SUPPLEMENTAL SCALE SQ SCH ×4 (08:00→21:00)
[2017-02-27 08:18] LABS: BICARBONATE 26.4 MEQ/L (21.0-32.0)
[2017-02-27 08:24] LABS: POTASSIUM 5.2 MEQ/L (3.5-5.1)
[2017-02-27] MEDS: DOCUSATE SODIUM 50 MG/SENNA 8.6 MG TAB PO SCH ×2 (08:58→21:22)
[2017-02-27] MEDS: buPROPion HCL 100 MG TAB PO SCH (08:58)
[2017-02-27] MEDS: DIGOXIN 0.125 MG TAB PO SCH (08:58)
[2017-02-27] MEDS: levETIRAcetam 500 MG TAB PO SCH ×2 (08:58→21:22)
[2017-02-27] MEDS: CARVEDILOL 6.25 MG TAB PO SCH ×2 (08:58→21:22)
[2017-02-27] MEDS: LOSARTAN 25 MG TAB PO SCH (08:58)
[2017-02-27] MEDS: TOLTERODINE TARTRATE 4 MG CAP LA PO SCH (08:58)
[2017-02-27] MEDS: SODIUM CHLORIDE 0.9% FLUSH 10 ML FLUSH IV FLUSH SCH ×2 (08:59→21:21)
[2017-02-27] MEDS: TOBRAMYCIN 0.3%/DEXAMETHASONE 0.1% OPHT SUSP 5 ML BTL EACH EYE SCH ×4 (09:01→21:21)
--- NOTE | 2017-02-27 10:10 | HHI.PR ---
Subjective Remarks Pt feels very tired and weak. States she feels sob this morning, no chest pain, mildly lightheaded but not dizzy. I was notified by RN that BS were low. pt able to eat and repeat BS was still below 70's. I requested that a dose of D50W be given to patient. Sugars went up to the 200's. Pt talking and answering questions. family at bedside and states that she does look more tired and weak. over the weekend she was eating on her own. Objective Vitals Vital Signs Date Time Temp Pulse Resp B/P (MAP) Pulse Ox O2 Delivery O2 Flow Rate FiO2 02/27/17 08:00 97.5 82 20 195/81 (119) 96 02/27/17 07:41 96 21 02/27/17 07:00 Room Air 02/27/17 04:00 Room Air 02/27/17 04:00 98.6 68 18 164/72 (102) 92 02/27/17 00:00 98.6 77 18 171/71 (104) 95 02/27/17 00:00 Room Air 02/26/17 20:01 97 02/26/17 20:00 98.7 84 18 175/80 (111) 94 02/26/17 20:00 Room Air 02/26/17 20:00 64 02/26/17 16:15 162/62 (95) 02/26/17 16:00 97.8 67 18 172/72 (105) 94 02/26/17 12:00 98.8 71 18 150/68 (95) 95 I/O 02/26/17 02/26/17 02/26/17 02/27/17 02/27/17 02/27/17 07:00 15:00 23:00 07:00 15:00 23:00 Intake Total 1251 ml 120 ml 240 ml Balance 1251 ml 120 ml 240 ml Intake Oral 650 ml 120 ml 240 ml IV Total 601 ml # Voids 3 5 4 Result Diagram: 02/26/17 0548 02/27/17 0638 Imaging Last Impressions Chest X-Ray 02/24/17 0913 Signed Impressions: Service Date/Time: Friday, February 24, 2017 09:36 - CONCLUSION: 1. Minimal bibasilar patchiness consistent with atelectasis and/or mild developing infiltrates. Clinical correlation is recommended. 2. Degenerative changes and scoliosis of the thoracolumbar spine. Emmanuel Brown MD Head CT 02/24/17 Signed Impressions: Service Date/Time: Friday, February 24, 2017 11:38 - CONCLUSION: 1. Diffuse cerebral atrophy. 2. Mild to moderate periventricular and subcortical white matter small vessel ischemic changes bilaterally. 3. No acute infarct, acute hemorrhage, mass effect or extra-axial fluid collections. Emmanuel Brown MD Abdomen/Pelvis CT 02/24/17 Signed Impressions: Service Date/Time: Friday, February 24, 2017 11:45 - CONCLUSION: 1. Apparent dilatation of the main pancreatic duct in the region of the body and tail with focus of high density at the transition point raising the possibility of calcification or clip. Correlation with pancreatic enzymes may be helpful. 2. Uncomplicated sigmoid diverticulosis. 3. Multilevel spinal stenoses, degenerative changes and scoliosis of the lumbar spine. Emmanuel Brown MD Objective Remarks GENERAL: Elderly woman lying in bed EYES: mild eye injection noted and less secretions bilaterally. ENT: Nose without drainage. Airway patent. NECK: Trachea midline. CARDIOVASCULAR: Regular rate and rhythm without murmurs RESPIRATORY: Equal bilateral breath sounds with poor air movement. GASTROINTESTINAL: Abdomen soft, non-tender, nondistended. No guarding. MUSCULOSKELETAL: Extremities without edema.No calf tenderness. NEUROLOGICAL: Intermittently attentive. Able to answer questions and follow commands. A/P Assessment and Plan 1. UTI -Urine culture positive for proteus mirabilis -sensitive to Rocephin 2. Possible early PNA -Chest x-ray reviewed minimal bibasilar patchiness poss mild developing infiltrates. Scoliosis of the thoracolumbar spine -Repeat chest x-ray as she is complaining of SOB today. -DuoNebs for poor air movement -Azithro/Rocephin -IS every hour while awake. I encouraged family members to remind her and encourage her to use it. -Supplemental O2 prn 3. AMS -Likely 2/2 acute infection. Also concern for polypharmacy with Restoril recently added to patient's home medication regimen -Improving with abx -CT head reviewed diffuse cerebral atrophy. No acute infarct, no hemorrhage. Mild to moderate periventricular and subcortical white matter vessel ischemic changes bilaterally. -CT abdomen and pelvis reviewed dilatation of the main pancreatic duct in the region of the body and tail focus of hyperdensity of the transition point raising the possibility of calcification or clip. Sigmoid diverticulosis. Multilevel spinal stenosis, degenerative changes and scoliosis of the lumbar spine. 4. hypoglycemia/DM decreased levemir dose to 10units at bedtime (was on 40 units). Monitor blood sugars and PO intake 5. DONOVAN -Gentle hydration. Cr. 1.05 today -Follow renal function -Monitor for signs of volume overload 6. Vision loss/conjunctivitis -ophthalmology evaluated the patient. Final report still pending, however per their note, " patient has had 1 month history of decreased vision in the left eye". prescription was ordered for tobradex. Appreciate assistance. f/u as an outpatient. pt w hx of dry macular degeneration and family aware that there is no treatment for this. 7. Prophylaxis -On Warfarin Discharge Planning Pt continues not to feel well. encourage po intake. speech eval in place. reviewed recs from production planning supervisor. chest x-ray ordered Rosa Elena Amin MD Feb 27, 2017 10:10
--- NOTE | 2017-02-27 10:41 | RADRPT ---
EXAM DATE/TIME: 02/27/2017 10:09 [facility] COMPARISON: CHEST SINGLE AP, February 24, 2017, 9:36. INDICATIONS : Shortness of breath. Evaluate for infiltrate. MEDICAL HISTORY : Congestive heart failure. Stroke. SURGICAL HISTORY : Appendectomy. Cholecystectomy. ENCOUNTER: Initial ACUITY: 1 day PAIN SCORE: Non-responsive. LOCATION: Bilateral chest FINDINGS: A single view of the chest demonstrates the lungs to be symmetrically aerated without evidence of mas s, infiltrate or effusion. Heart is normal size. Moderate tortuosity descending thoracic aorta. Mi ld curvature of the thoracic spine convex towards the left. CONCLUSION: No infiltrates seen. Alexis Diallo MD on February 27, 2017 at 10:39 Board Certified Radiologist. This report was verified electronically.
[2017-02-27] MEDS: cefTRIAXone INJ 1,000 MG in SODIUM CHLORIDE 0.9% INJ 100 ML IV SCH (11:59)
[2017-02-27] MEDS: AZITHROMYCIN INJ 500 MG in SODIUM CHLOR 0.9% 250 ML INJ 250 ML IV SCH (13:24)
[2017-02-27 13:28] LABS: INTERNATIONAL NORMALIZED RATIO 1.5 RATIO; PROTHROMBIN TIME - PATIENT 16.3 SEC (9.8-11.6)
[2017-02-27] MEDS: cloNIDine HCL 0.1 MG TAB PO PRN (14:18)
[2017-02-27] MEDS ORDERED: WARFARIN SOD 10 MG TAB PO SCH (16:00)
[2017-02-27] MEDS ORDERED: INSULIN DETEMIR 100 UNITS/ML VIAL SQ SCH (21:00)
[2017-02-27] MEDS: GABAPENTIN 100 MG CAP PO SCH (21:21)
[2017-02-27] MEDS: MIRTAZAPINE ODT 30 MG TAB PO SCH (21:22)
[2017-02-27] MEDS: risperiDONE 0.5 MG TAB PO SCH (21:22)
[2017-02-28] VITALS (10 sets, daily range): BP systolic 148–189; BP diastolic 57–83; PULSE 61–90; RESP 18–20; TEMP 97.6–98.8; O2SAT 92–97
[2017-02-28] MEDS: SODIUM CHLOR 0.9% 1000 ML INJ 1,000 ML IV SCH ×3 (03:09→22:13)
[2017-02-28] MEDS: LEVOTHYROXINE SODIUM 100 MCG TAB PO SCH (05:13)
[2017-02-28 07:46] LABS: INTERNATIONAL NORMALIZED RATIO 1.5 RATIO; PROTHROMBIN TIME - PATIENT 17.4 SEC (9.8-11.6)
[2017-02-28] MEDS: levETIRAcetam 500 MG TAB PO SCH ×2 (08:11→20:13)
[2017-02-28] MEDS: INSULIN ASPART SUPPLEMENTAL SCALE SQ SCH ×4 (08:11→20:22)
[2017-02-28] MEDS: buPROPion HCL 100 MG TAB PO SCH (08:11)
[2017-02-28] MEDS: DIGOXIN 0.125 MG TAB PO SCH (08:12)
[2017-02-28] MEDS: TOLTERODINE TARTRATE 4 MG CAP LA PO SCH (08:12)
[2017-02-28] MEDS: DOCUSATE SODIUM 50 MG/SENNA 8.6 MG TAB PO SCH ×2 (08:12→20:13)
[2017-02-28] MEDS: LOSARTAN 25 MG TAB PO SCH (08:12)
[2017-02-28] MEDS: CARVEDILOL 6.25 MG TAB PO SCH ×2 (08:12→20:13)
[2017-02-28] MEDS: TOBRAMYCIN 0.3%/DEXAMETHASONE 0.1% OPHT SUSP 5 ML BTL EACH EYE SCH ×4 (08:13→20:11)
[2017-02-28] MEDS: SODIUM CHLORIDE 0.9% FLUSH 10 ML FLUSH IV FLUSH SCH ×2 (08:14→20:14)
[2017-02-28] MEDS: RESP: ALBUTEROL 2.5 MG/IPRATROPIUM 0.5 MG NEB (SCH) NEB ×4 (09:46→19:33)
--- NOTE | 2017-02-28 11:14 | HHI.PR ---
Subjective Remarks Pt states she is the same, not feeling well but cannot pinpoint what is bothering her this morning. denies any pain, SOB is improved, no nausea or vomiting, no appetite working w speech therapy Objective Vitals Vital Signs Date Time Temp Pulse Resp B/P (MAP) Pulse Ox O2 Delivery O2 Flow Rate FiO2 02/28/17 09:49 95 02/28/17 08:40 Room Air 02/28/17 08:40 61 02/28/17 04:00 97.8 66 18 157/68 (97) 95 02/28/17 03:57 Room Air 02/28/17 01:01 Room Air 02/28/17 00:00 97.8 73 18 150/67 (94) 92 02/27/17 20:00 Room Air 02/27/17 20:00 97.8 70 18 176/75 (108) 96 02/27/17 19:52 69 02/27/17 19:48 95 21 02/27/17 16:10 98.2 67 18 196/78 (117) 94 02/27/17 12:00 98.3 73 20 176/80 (112) 95 I/O 02/27/17 02/27/17 02/27/17 02/28/17 02/28/17 02/28/17 07:00 15:00 23:00 07:00 15:00 23:00 Intake Total 240 ml 200 ml 720 ml 1365 ml Output Total 600 ml Balance 240 ml 200 ml 120 ml 1365 ml Intake Oral 240 ml 720 ml 240 ml IV Total 200 ml 1125 ml Output Urine Total 600 ml # Voids 4 1 4 # Bowel Movements 1 0 Result Diagram: 02/26/17 0548 02/27/17 0638 Imaging Last Impressions Chest X-Ray 02/27/17 0000 Signed Impressions: Service Date/Time: Monday, February 27, 2017 10:09 - CONCLUSION: No infiltrates seen. Alexis Diallo MD Head CT 02/24/17 0000 Signed Impressions: Service Date/Time: Friday, February 24, 2017 11:38 - CONCLUSION: 1. Diffuse cerebral atrophy. 2. Mild to moderate periventricular and subcortical white matter small vessel ischemic changes bilaterally. 3. No acute infarct, acute hemorrhage, mass effect or extra-axial fluid collections. Emmanuel Brown MD Abdomen/Pelvis CT 02/24/17 0000 Signed Impressions: Service Date/Time: Friday, February 24, 2017 11:45 - CONCLUSION: 1. Apparent dilatation of the main pancreatic duct in the region of the body and tail with focus of high density at the transition point raising the possibility of calcification or clip. Correlation with pancreatic enzymes may be helpful. 2. Uncomplicated sigmoid diverticulosis. 3. Multilevel spinal stenoses, degenerative changes and scoliosis of the lumbar spine. Emmanuel Brown MD Objective Remarks GENERAL: Elderly woman lying in bed EYES: mild eye injection noted and less secretions bilaterally. ENT: Nose without drainage. Airway patent. NECK: Trachea midline. CARDIOVASCULAR: Regular rate and rhythm without murmurs RESPIRATORY: Equal bilateral breath sounds with poor air movement. GASTROINTESTINAL: Abdomen soft, non-tender, nondistended. No guarding. MUSCULOSKELETAL: Extremities without edema.No calf tenderness. NEUROLOGICAL: Intermittently attentive. Able to answer questions and follow commands. A/P Assessment and Plan 1. UTI -Urine culture positive for proteus mirabilis -sensitive to Rocephin 2. Possible early PNA -Chest x-ray reviewed minimal bibasilar patchiness poss mild developing infiltrates. Scoliosis of the thoracolumbar spine -Repeat chest x-ray as she is complaining of SOB today. -DuoNebs for poor air movement -Azithro/Rocephin -IS every hour while awake. I encouraged family members to remind her and encourage her to use it. -Supplemental O2 prn 3. AMS -Likely 2/2 acute infection. Also concern for polypharmacy with Restoril recently added to patient's home medication regimen. Pt still very tired, doesn' t seem motivated to eat. Will get a psych consult to see if she would benefit from any adjustment to her meds. -CT head reviewed diffuse cerebral atrophy. No acute infarct, no hemorrhage. Mild to moderate periventricular and subcortical white matter vessel ischemic changes bilaterally. -CT abdomen and pelvis reviewed dilatation of the main pancreatic duct in the region of the body and tail focus of hyperdensity of the transition point raising the possibility of calcification or clip. Sigmoid diverticulosis. Multilevel spinal stenosis, degenerative changes and scoliosis of the lumbar spine. 4. hypoglycemia/DM increase dose of levemir dose to 15 units at bedtime (was on 40 units). Monitor blood sugars and PO intake. Continue to adjust levemir dosing. Pt requires encouragement to eat and won't eat on her own like before Fuel Buyer consult in place for recs. 5. DONOVAN -Gentle hydration. Cr. 1.05 today -Follow renal function -Monitor for signs of volume overload 6. Vision loss/conjunctivitis -ophthalmology evaluated the patient. Final report still pending, however per their note, " patient has had 1 month history of decreased vision in the left eye". prescription was ordered for tobradex. Appreciate assistance. f/u as an outpatient. pt w hx of dry macular degeneration and family aware that there is no treatment for this. 7. Prophylaxis -On Warfarin Discharge Planning Pt continues not to feel well. encourage po intake. speech following and recommends mechanical soft, thin liquids. reviewed recs from medical van driver. chest x-ray reviewed. psych eval for possible adjustment of her meds. Rosa Elena Amin MD Feb 28, 2017 11:14
[2017-02-28] MEDS: cefTRIAXone INJ 1,000 MG in SODIUM CHLORIDE 0.9% INJ 100 ML IV SCH (11:46)
[2017-02-28] MEDS: AZITHROMYCIN INJ 500 MG in SODIUM CHLOR 0.9% 250 ML INJ 250 ML IV SCH (13:24)
[2017-02-28 15:07] LABS: BICARBONATE 23.6 MEQ/L (21.0-32.0); POTASSIUM 5.4 MEQ/L (3.5-5.1)
[2017-02-28] MEDS: traMADol HCL 50 MG TAB PO PRN (15:25)
[2017-02-28] MEDS: WARFARIN SOD 5 MG TAB PO SCH (15:32)
[2017-02-28] MEDS: GABAPENTIN 100 MG CAP PO SCH (20:12)
[2017-02-28] MEDS: risperiDONE 0.5 MG TAB PO SCH (20:13)
[2017-02-28] MEDS: MIRTAZAPINE ODT 30 MG TAB PO SCH (20:13)
[2017-02-28] MEDS: INSULIN DETEMIR 100 UNITS/ML VIAL SQ SCH (20:22)
[2017-03-01] VITALS (9 sets, daily range): BP systolic 139–184; BP diastolic 64–80; PULSE 59–81; RESP 16–20; TEMP 97.5–99.2; O2SAT 93–98
[2017-03-01] MEDS: LEVOTHYROXINE SODIUM 100 MCG TAB PO SCH (04:46)
[2017-03-01] MEDS: traMADol HCL 50 MG TAB PO PRN (08:35)
[2017-03-01] MEDS: TOLTERODINE TARTRATE 4 MG CAP LA PO SCH (08:36)
[2017-03-01] MEDS: buPROPion HCL 100 MG TAB PO SCH (08:36)
[2017-03-01] MEDS: LOSARTAN 25 MG TAB PO SCH (08:36)
[2017-03-01] MEDS: CARVEDILOL 6.25 MG TAB PO SCH ×2 (08:36→21:12)
[2017-03-01] MEDS: DOCUSATE SODIUM 50 MG/SENNA 8.6 MG TAB PO SCH ×2 (08:36→21:01)
[2017-03-01] MEDS: DIGOXIN 0.125 MG TAB PO SCH (08:36)
[2017-03-01] MEDS: levETIRAcetam 500 MG TAB PO SCH ×2 (08:36→21:01)
[2017-03-01] MEDS: INSULIN ASPART SUPPLEMENTAL SCALE SQ SCH ×4 (08:36→21:13)
[2017-03-01] MEDS: SODIUM CHLORIDE 0.9% FLUSH 10 ML FLUSH IV FLUSH SCH ×2 (08:47→21:02)
[2017-03-01] MEDS: TOBRAMYCIN 0.3%/DEXAMETHASONE 0.1% OPHT SUSP 5 ML BTL EACH EYE SCH ×4 (08:47→21:02)
[2017-03-01] MEDS: RESP: ALBUTEROL 2.5 MG/IPRATROPIUM 0.5 MG NEB (SCH) NEB ×2 (09:04→12:44)
[2017-03-01 09:06] LABS: INTERNATIONAL NORMALIZED RATIO 1.6 RATIO; PROTHROMBIN TIME - PATIENT 18.1 SEC (9.8-11.6)
[2017-03-01 09:19] LABS: BASOPHIL # 0.1 TH/MM3 (0-0.2); BASOPHIL % 0.7 % (0.0-2.0); EOSINOPHIL # 0.2 TH/MM3 (0-0.4); EOSINOPHIL % 2.6 % (0.0-4.0); HEMATOCRIT 30.8 % (35.0-46.0); HEMO FLAGS DIFF FINAL; LYMPH % 21.6 % (9.0-44.0); LYMPHOCYTE # 1.9 TH/MM3 (1.0-4.8); MEAN CELL VOLUME 93.7 FL (80.0-100.0); MEAN CORPUSCULAR HEMOGLOBIN 32.3 PG (27.0-34.0); MEAN CORPUSCULAR HGB CONC 34.5 % (32.0-36.0); MONO % 7.9 % (0.0-8.0); NEUT % 67.2 % (16.0-70.0); PLATELET COUNT 210 TH/MM3 (150-450); RED BLOOD COUNT 3.29 MIL/MM3 (4.00-5.30); RED CELL DISTRIBUTION WIDTH 12.7 % (11.6-17.2); WHITE BLOOD COUNT 8.9 TH/MM3 (4.0-11.0)
[2017-03-01] MEDS ORDERED: PNEUMOCOCCAL POLYVALENT INJ 25 MCG/0.5 ML SYR IM ONE (10:00)
[2017-03-01] MEDS ORDERED: INFLUENZA VIRUS VACCINE (QUADRIVALENT) 0.5 ML SYR IM ONE (10:00)
[2017-03-01 11:20] LABS: BICARBONATE 23.4 MEQ/L (21.0-32.0)
[2017-03-01] MEDS: cefTRIAXone INJ 1,000 MG in SODIUM CHLORIDE 0.9% INJ 100 ML IV SCH (11:26)
[2017-03-01] MEDS: AZITHROMYCIN INJ 500 MG in SODIUM CHLOR 0.9% 250 ML INJ 250 ML IV SCH (11:37)
--- NOTE | 2017-03-01 15:32 | PD.PSY.CON ---
Provisional Diagnosis Admission Date Feb 25, 2017 at 13:15 [place] I. Adjustment disorder with depressed mood, Alzheimer's dementia, history of depression [place] II. Deferred [place] III. Hypertension and diabetes History of Present Illness Service Psychiatry Consult Requested By Primary medical team Reason for Consult Symptoms of depression Primary Care Physician Rajendra Romeo M.D. HPI The patient is a 87-year-old Woman, Domiciled in a Group Home, , with A history history of Alzheimer's dementia, depression, no previous psychiatric hospitalizations, no previous suicidal attempts, she is on Risperdal 0.5 mg twice a day, Wellbutrin 50 mg twice a day, Remeron 30 mg daily prescribed by PCP , she has medical history of diabetes, CVA, HTN, HLD, Hypothyroidism, seizure disorder who was brought to the ED by ambulance [facility] for evaluation of depressed mental status. Upon arrival to the emergency department the patient was noted awake but drowsy, admitted due to DONOVAN, UTI, PNA. Consulted to psychiatry due to symptomatology of depression. On psychiatric evaluation patient is calm, cooperative, even though she is distant and hypoactive. Patient reports feeling sad and not happy to be hospitalized, he denies symptomatology of depression such as anhedonia, hopelessness, helplessness, suicidal, homicidal ideation. Denies visual and auditory hallucinations. SHe reports that she has too many things to live for. She says she loves her family, especially her granddaughter. He reports that she has been a little bit sad in the hospital, but wants to go back to her residential facility she is to be fine. Patient is fully oriented 3 at this moment. No attention deficit present, no fluctuation of consciousness. He reports poor sleep at night in the hospital. She says that in the past she has been depressed, but she is stable in current psychotropic regimen. Collateral information from her daughter Nona Olivia, who reports that the patient is at baseline. Patient has been depressed in the past, but also psychotic and paranoid due to her dementia, but at this moment she is stable in her psychotropics. She says that due to paranoia patient has to be placed in a penitentiary. She does not see any major issues at this moment other than the patient being uncomfortable in the hospital. Review of Systems Except as stated in HPI: all other systems reviewed are Neg Past Family Social History Coded Allergies: Sulfa (Sulfonamide Antibiotics) (Unverified Allergy, Severe, Hives, ) levofloxacin (Unverified Allergy, Severe, N/V, 02/24/17) pregabalin (Unverified Allergy, Intermediate, 02/24/17) Reported Medications Risperidone (Risperdal) 0.5 Mg Tab, 0.5 MG PO HS, #30 TAB 0 Refills 02/24/17 Nitrofurantoin Monohydrate Macrocrystals (Macrobid) 100 Mg Cap, 100 MG PO BID for UTI for 7 Days, #14 CAP 0 Refills 02/24/17 Levetiracetam (Keppra) 500 Mg Tab, 500 MG PO BID for Control Seizures, #60 TAB 0 Refills 02/24/17 Gabapentin (Neurontin) 100 Mg Cap, 100 MG PO HS for Neuropathy Pain, #30 CAP 0 Refills 02/24/17 Digoxin (Lanoxin) 125 Mcg Tablet, 125 MCG PO DAILY for CAD/CHF 02/24/17 Carvedilol (Coreg) 6.25 Mg Tab, 6.25 MG PO BID, #60 TAB 0 Refills Take with meals 02/24/17 Bupropion HCl (Bupropion HCl) 100 Mg Tab, 50 MG PO DAILY for Control Depression , TAB 0 Refills 02/24/17 Tramadol (Tramadol) 50 Mg Tab, 50 MG PO BID Y for PAIN, TAB 0 Refills 02/24/17 Magnesium Hydroxide Liq (Milk of Magnesia Liq) 400 Mg/5 Ml Susp, 30 ML PO Q4HR Y for CONSTIPATION, #1 BOTTLE 0 Refills 02/24/17 Acetaminophen (Tylenol) 325 Mg Tab, 650 MG PO Q4H Y for Pain/Discomfort/Temp > 101, TAB 0 Refills 02/24/17 Oxybutynin ER 24 HR (Ditropan XL 24 HR) 10 Mg Tab, 10 MG PO DAILY for Urinary Symptom Managemen, #30 TAB 0 Refills 02/24/17 Multiple Vitamins W/ Minerals (I-Argelia) 1,000-60-2 Tab, 1 TAB PO DAILY for Nutritional Supplement 02/24/17 Memantine-Donepezil (Namzaric) 28-10 Mg Cap, 1 CAP PO HS for Alzheimer Dementia , #30 CAP 0 Refills 02/24/17 Mirtazapine (Remeron) 30 Mg Tab, 30 MG PO HS for Depression Control, #30 TAB 0 Refills 02/24/17 Losartan (Cozaar) 25 Mg Tab, 25 MG PO DAILY for Blood Pressure Management, #30 TAB 0 Refills 02/24/17 Lisinopril (Lisinopril) 10 Mg Tab, 10 MG PO DAILY, #30 TAB 0 Refills 02/24/17 Levothyroxine (Levothyroxine) 100 Mcg Tab, 100 MCG PO DAILY for Thyroid, #30 TAB 0 Refills 02/24/17 Insulin Glargine Inj (Lantus Inj) 1,000 Unit/10 Ml Vial, 65 UNITS SQ HS for Blood Sugar Management, VIAL 0 Refills 02/24/17 Insulin Aspart Inj (Novolog Inj) 1,000 Unit/10 Ml Vial, 10 UNITS SQ Before Meals for Blood Sugar Management, #10 ML 0 Refills 02/24/17 Warfarin (Warfarin) 10 Mg Tab, 10 MG PO SUNDAY for Blood Clot Prevention, #30 TAB 0 Refills 02/24/17 Warfarin (Warfarin) 5 Mg Tab, 5 MG PO for Blood Clot Prevention, # 30 TAB 0 Refills Take 1 tablet (5mg) on Sunday,Sunday,Sunday,,Sunday and Sunday02/24/17 Loperamide (Imodium A-D) 2 Mg Capsule, 4 MG PO INITIAL DOSE Y for DIARRHEA, CAP 0 Refills After initial dose, give 1 cap (2mg) after each loose stool, NTE 8 caps/24hrs 02/24/17 Glucagon (Rdna) Inj Kit (Glucagen Hypokit Inj Kit) 1 Mg Kit, 1 MG IM ONCE Y for Hypoglycemic Episode, #1 KIT 0 Refills 02/24/17 Sodium Phosphates (Enema Disposable) 19 Gram-7 Gram/118 Ml Jennifer, 1 APPLIC RECTAL Y for IF NO RESULTS FROM DULCOLAX 02/24/17 Bisacodyl Supp (Dulcolax Supp) 10 Mg Supp, 10 MG RECTAL DAILY Y for IF NO RESULTS FROM MILK OF MAG, #12 SUPP 0 Refills 02/24/17 Dfykmomc-Uiwuhxlpp-Aykamrqqwxj Liq (Antacid Anti-Gas Regular Liq) 200-200-20 Mg/ 5 Ml Susp, 30 ML PO Q4HR Y for Indigestion/Heartburn, ML 0 Refills Take between meals or as directed. Shake well. Do not exceed 120 mL/24 hrs. 02/24/17 Alprazolam (Xanax) 0.25 Mg Tab, 0.25 MG PO TID Y for ANXIETY, TAB 0 Refills 02/24/17 Current Medications Medications (Trade) Dose Ordered Sig/Chloé Route Start Time Stop Time Status Last Admin Ceftriaxone Sodium 1000 mg/ Sodium Chloride 100 ml @ 200 mls/hr Q24H IV 02/25/17 11:00 03/01/17 11:26 Azithromycin 500 mg/Sodium Chloride 250 ml @ 250 mls/hr Q24H IV 02/25/17 12:00 03/01/17 11:37 (Tylenol) 650 mg Q4H PRN PO 02/24/17 12:45 (Xanax) 0.25 mg TID PRN PO 02/24/17 12:45 (Mag-Al Plus Susp Liq) 30 ml Q4HR PRN PO 02/24/17 12:45 (Wellbutrin) 50 mg DAILY PO 02/25/17 09:00 03/01/17 08:36 (Coreg) 6.25 mg BID PO 02/24/17 21:00 03/01/17 08:36 (Lanoxin) 0.125 mg DAILY PO 02/25/17 09:00 03/01/17 08:36 (Neurontin) 100 mg HS PO 02/24/17 21:00 02/28/17 20:12 (Keppra) 500 mg BID PO 02/24/17 21:00 03/01/17 08:36 (Synthroid) 100 mcg DAILY@0600 PO 02/25/17 06:00 03/01/17 04:46 (Cozaar) 25 mg DAILY PO 02/25/17 09:00 03/01/17 08:36 (Remeron Soltab Odt) 30 mg HS PO 02/24/17 21:00 02/28/17 20:13 (risperDAL) 0.5 mg HS PO 02/24/17 21:00 02/28/17 20:13 (Ultram) 50 mg BID PRN PO 02/24/17 12:45 03/01/17 08:35 (Coumadin) 5 mg SuMoWeThFrSa PO 02/24/17 16:00 02/28/17 15:32 (Coumadin) 10 mg Tu PO 02/27/17 16:00 02/27/17 18:00 Patient Own Medication PT OWN MED: NAMZA... HS PO 02/24/17 21:00 Future Hold (Detrol La) 4 mg DAILY PO 02/25/17 09:00 03/01/17 08:36 Sodium Chloride 1,000 ml @ 50 mls/hr Q20H IV 02/24/17 12:47 02/28/17 22:13 (NS Flush) 2 ml UNSCH PRN IV FLUSH 02/24/17 13:00 (NS Flush) 2 ml BID IV FLUSH 02/24/17 21:00 02/27/17 21:21 (Zofran Inj) 4 mg Q6H PRN IVP 02/24/17 13:00 (Narcan Inj) 0.4 mg UNSCH PRN IV PUSH 02/24/17 13:00 (Radha-Colace) 1 tab BID PO 02/24/17 21:00 03/01/17 08:36 (Milk Of Magnesia Liq) 30 ml Q12H PRN PO 02/24/17 13:00 (Senokot) 17.2 mg Q12H PRN PO 02/24/17 13:00 (Dulcolax Supp) 10 mg DAILY PRN RECTAL 02/24/17 13:00 (Lactulose Liq) 30 ml DAILY PRN PO 02/24/17 13:00 (Pill Splitter) 1 ea UNSCH PRN OTHER 02/24/17 13:15 (Catapres) 0.1 mg Q6H PRN PO 02/24/17 16:15 02/27/17 14:18 (Apresoline Inj) 20 mg Q4H PRN IV PUSH 02/24/17 18:15 03/01/17 04:49 (D50w (Vial) Inj) 50 ml UNSCH PRN IV PUSH 02/25/17 11:00 02/27/17 08:45 (Glucagon Inj) 1 mg UNSCH PRN OTHER 02/25/17 11:00 (NovoLOG SUPPLEMENTAL SCALE) 1 ACHS SLIDING SCALE SQ 02/25/17 12:00 03/01/17 11:53 (Duoneb Neb) 1 ampule Q4HR WHILE AWAKE NEB NEB 02/25/17 16:00 03/01/17 12:44 (Tobradex Opth Susp) 1 drop QID EACH EYE 02/26/17 18:00 03/01/17 13:59 Pharmacy Profile Note 0 ml @ 0 mls/hr UNSCH OTHER 02/27/17 10:15 (Norvasc) 10 mg DAILY PO 02/28/17 09:00 03/01/17 08:36 (Levemir Inj) 15 units HS SQ 02/28/17 21:00 02/28/17 20:22 Family Psych History She has a brother with PTSD Social History Patient was born and raised in [place], she lives in a penitentiary, she is , she has 5 kids, his level of education is has Physical Exam No tremors, no EPS, major psychomotor agitation present. Vital Signs Vital Signs Date Time Temp Pulse Resp B/P (MAP) Pulse Ox O2 Delivery O2 Flow Rate FiO2 03/01/17 11:56 98.4 78 20 147/68 (94) 03/01/17 09:06 93 21 03/01/17 07:56 Room Air I/O 03/01/17 03/01/17 03/02/17 08:00 16:00 00:00 Intake Total 615 ml Balance 615 ml Lab Results Test 03/01/17 08:00 White Blood Count 8.9 TH/MM3 Red Blood Count 3.29 MIL/MM3 Hemoglobin 10.6 GM/DL Hematocrit 30.8 % Mean Corpuscular Volume 93.7 FL Mean Corpuscular Hemoglobin 32.3 PG Mean Corpuscular Hemoglobin Concent 34.5 % Red Cell Distribution Width 12.7 % Platelet Count 210 TH/MM3 Mean Platelet Volume 8.5 FL Neutrophils (%) (Auto) 67.2 % Lymphocytes (%) (Auto) 21.6 % Monocytes (%) (Auto) 7.9 % Eosinophils (%) (Auto) 2.6 % Basophils (%) (Auto) 0.7 % Neutrophils # (Auto) 6.0 TH/MM3 Lymphocytes # (Auto) 1.9 TH/MM3 Monocytes # (Auto) 0.7 TH/MM3 Eosinophils # (Auto) 0.2 TH/MM3 Basophils # (Auto) 0.1 TH/MM3 CBC Comment DIFF FINAL Differential Comment Prothrombin Time 18.1 SEC Prothromb Time International Ratio 1.6 RATIO Blood Urea Nitrogen 27 MG/DL Creatinine 1.03 MG/DL Random Glucose 200 MG/DL Calcium Level 9.0 MG/DL Sodium Level 138 MEQ/L Potassium Level 5.0 MEQ/L Chloride Level 106 MEQ/L Carbon Dioxide Level 23.4 MEQ/L Anion Gap 9 MEQ/L Estimat Glomerular Filtration Rate 51 ML/MIN Date/Time Source Procedure Growth Status 02/24/17 09:55 Blood Peripheral Aerobic Blood Culture - Final NO GROWTH IN 5 DAYS Complete 02/24/17 09:55 Blood Peripheral Anaerobic Blood Culture - Final NO GROWTH IN 5 DAYS Complete 02/24/17 10:05 Nasal Washing Influenza Types A,B Antigen (TARYN) - Final NEGATIVE FOR FLU A AND B ANTIGEN.... Complete 02/24/17 09:55 Urine Catheterized Urine Urine Culture - Final Proteus Mirabilis Complete Mental Status Examination Appearance: Appropriate Consciousness: Alert Orientation: x4 Motor Activity: Normal gait Speech: Unremarkable Language: Adequate Fund of Knowledge: Adequate Attention and Concentration: Adequate Memory: Unremarkable Mood: Appropriate Affect: Appropriate Thought Process & Associations: Intact Thought Content: Appropriate Hallucination Type: None Delusion Type: None Suicidal Ideation: No Suicidal Plan: No Suicidal Intention: No Homicidal Ideation: No Homicidal Plan: No Homicidal Intention: No Insight: Adequate Judgment: Adequate Assessment & Plan Problem List: (1) Adjustment disorder with depressed mood ICD Codes: F43.21 - Adjustment disorder with depressed mood Assessment & Plan: On psychiatric evaluation today the patient presents with mild symptomatology of depression mostly consisting in sadness, difficulty sleeping at night that seems to be secondary to the acuity of medical illnesses and hospitalization. She denies anhedonia, denies hopelessness, denies hopelessness, denies worthlessness, she denies suicidal and homicidal ideation, she denies visual and auditory hallucinations. Patient is oriented 3, no attention deficit, no fluctuation of consciousness at this moment. Extensive support, motivation and psychoeducation provided. I agree with continuing current psychotropic regimen. Can decrease Remeron to 15 mg to help with sleep since Remeron 30 mg usually is more activating than sedating. Patient does not meet criteria for psychiatric admission. Continue her psychiatric care as an outpatient. She also can benefit of Aricept 10 mg and Namenda 10 mg to slower the progression of her dementia. Consult appreciated. Assessment & Plan Estimated LOS: Mikey Mendieta MD Mar 01, 2017 15:32
[2017-03-01] MEDS: WARFARIN SOD 5 MG TAB PO SCH (15:37)
--- NOTE | 2017-03-01 17:12 | HHI.PR ---
Subjective Remarks Patient c/o mild headache mild nausea but not vomiting A&O x3 offers no other complaints at this time Objective Vitals Vital Signs Date Time Temp Pulse Resp B/P (MAP) Pulse Ox O2 Delivery O2 Flow Rate FiO2 03/01/17 11:56 98.4 78 20 147/68 (94) 03/01/17 09:06 93 21 03/01/17 08:18 98.2 81 20 154/66 (95) 96 03/01/17 08:00 79 03/01/17 07:56 Room Air 03/01/17 04:00 98.3 78 20 184/72 (109) 96 03/01/17 03:48 Room Air 03/01/17 00:00 99.2 59 18 172/80 (110) 93 03/01/17 00:00 Room Air 02/28/17 20:19 86 02/28/17 20:00 98.8 90 18 189/83 (118) 92 02/28/17 20:00 Room Air 02/28/17 19:34 97 I/O 02/28/17 02/28/17 02/28/17 03/01/17 03/01/17 03/01/17 07:00 15:00 23:00 07:00 15:00 23:00 Intake Total 1365 ml 350 ml 1595 ml 615 ml 350 ml Balance 1365 ml 350 ml 1595 ml 615 ml 350 ml Intake Oral 240 ml 720 ml 240 ml IV Total 1125 ml 350 ml 875 ml 375 ml 350 ml # Voids 4 3 4 # Bowel Movements 0 0 0 Result Diagram: 03/01/17 0800 03/01/17 08 Other Results Laboratory Tests Test 02/27/17 06:38 02/27/17 12:44 02/28/17 06:20 02/28/17 14:13 Blood Urea Nitrogen 31 MG/DL 29 MG/DL Creatinine 1.05 MG/DL 1.04 MG/DL Random Glucose 39 MG/DL 296 MG/DL Calcium Level 8.9 MG/DL 8.8 MG/DL Sodium Level 142 MEQ/L 135 MEQ/L Potassium Level 5.2 MEQ/L 5.4 MEQ/L Chloride Level 110 MEQ/L 104 MEQ/L Carbon Dioxide Level 26.4 MEQ/L 23.6 MEQ/L Anion Gap 6 MEQ/L 7 MEQ/L Estimat Glomerular Filtration Rate 49 ML/MIN 50 ML/MIN Prothrombin Time 16.3 SEC 17.4 SEC Prothromb Time International Ratio 1.5 RATIO 1.5 RATIO Test 03/01/17 08:00 White Blood Count 8.9 TH/MM3 Red Blood Count 3.29 MIL/MM3 Hemoglobin 10.6 GM/DL Hematocrit 30.8 % Mean Corpuscular Volume 93.7 FL Mean Corpuscular Hemoglobin 32.3 PG Mean Corpuscular Hemoglobin Concent 34.5 % Red Cell Distribution Width 12.7 % Platelet Count 210 TH/MM3 Mean Platelet Volume 8.5 FL Neutrophils (%) (Auto) 67.2 % Lymphocytes (%) (Auto) 21.6 % Monocytes (%) (Auto) 7.9 % Eosinophils (%) (Auto) 2.6 % Basophils (%) (Auto) 0.7 % Neutrophils # (Auto) 6.0 TH/MM3 Lymphocytes # (Auto) 1.9 TH/MM3 Monocytes # (Auto) 0.7 TH/MM3 Eosinophils # (Auto) 0.2 TH/MM3 Basophils # (Auto) 0.1 TH/MM3 CBC Comment DIFF FINAL Differential Comment Prothrombin Time 18.1 SEC Prothromb Time International Ratio 1.6 RATIO Blood Urea Nitrogen 27 MG/DL Creatinine 1.03 MG/DL Random Glucose 200 MG/DL Calcium Level 9.0 MG/DL Sodium Level 138 MEQ/L Potassium Level 5.0 MEQ/L Chloride Level 106 MEQ/L Carbon Dioxide Level 23.4 MEQ/L Anion Gap 9 MEQ/L Estimat Glomerular Filtration Rate 51 ML/MIN Imaging Last Impressions Chest X-Ray 02/27/17 0000 Signed Impressions: Service Date/Time: Monday, February 27, 2017 10:09 - CONCLUSION: No infiltrates seen. Alexis Diallo MD Head CT 02/24/17 0000 Signed Impressions: Service Date/Time: Friday, February 24, 2017 11:38 - CONCLUSION: 1. Diffuse cerebral atrophy. 2. Mild to moderate periventricular and subcortical white matter small vessel ischemic changes bilaterally. 3. No acute infarct, acute hemorrhage, mass effect or extra-axial fluid collections. Emmanuel Brown MD Abdomen/Pelvis CT 02/24/17 0000 Signed Impressions: Service Date/Time: Friday, February 24, 2017 11:45 - CONCLUSION: 1. Apparent dilatation of the main pancreatic duct in the region of the body and tail with focus of high density at the transition point raising the possibility of calcification or clip. Correlation with pancreatic enzymes may be helpful. 2. Uncomplicated sigmoid diverticulosis. 3. Multilevel spinal stenoses, degenerative changes and scoliosis of the lumbar spine. Emmanuel Brown MD A/P Assessment and Plan UTI -Urine culture positive for proteus mirabilis -sensitive to Rocephin Possible early PNA -Chest x-ray reviewed minimal bibasilar patchiness poss mild developing infiltrates. Scoliosis of the thoracolumbar spine -Repeat chest x-ray as she is complaining of SOB today. -DuoNebs for poor air movement -Azithro/Rocephin, will DC azithromycin as patient has completed 5 days -IS every hour while awake -Supplemental O2 prn AMS -Likely 2/2 acute infection. Also concern for polypharmacy with Restoril recently added to patient's home medication regimen. Pt still very tired, doesn' t seem motivated to eat. - appreciate psych consult will decrease Remeron to 15 mg per there recommendations -CT head reviewed diffuse cerebral atrophy. No acute infarct, no hemorrhage. Mild to moderate periventricular and subcortical white matter vessel ischemic changes bilaterally. -CT abdomen and pelvis reviewed dilatation of the main pancreatic duct in the region of the body and tail focus of hyperdensity of the transition point raising the possibility of calcification or clip. Sigmoid diverticulosis. Multilevel spinal stenosis, degenerative changes and scoliosis of the lumbar spine. hypoglycemia- resolved DM Levemir dose to 15 units at bedtime (was on 40 units). Monitor blood sugars and PO intake. Continue to adjust Levemir dosing. Pt requires encouragement to eat Pin Sticker consult in place for recs. DONOVAN -Gentle hydration. Cr. 1.05 today -Follow renal function -Monitor for signs of volume overload Vision loss/conjunctivitis -ophthalmology evaluated the patient. Final report still pending, however per their note, " patient has had 1 month history of decreased vision in the left eye". prescription was ordered for tobradex. Appreciate assistance. f/u as an outpatient. pt w hx of dry macular degeneration and family aware that there is no treatment for this. Prophylaxis -On Warfarin Patient with elevation of AST/ALT and CT abdomen and pelvis 02/24/2017 reviewed and reveals apparent dilation of the main pancreatic duct in the region of the body and tail with focus of high density at the transition point reason the possibility of calcification or clip. Correlation with pancreatic enzymes may be helpful. Uncomplicated sigmoid diverticulosis. Multilevel spinal stenosis and degenerative changes and scoliosis of lumbar spine recommend GI follow up after DC Headache- mild Tylenol as needed for headache Nausea Zofran as needed for N/V Discharge Planning Possible DC tomorrow if stable Discussed with patient, nurse and Britta Medrano Mar 01, 2017 17:12
[2017-03-01] MEDS: SODIUM CHLOR 0.9% 1000 ML INJ 1,000 ML IV SCH (19:15)
[2017-03-01] MEDS: risperiDONE 0.5 MG TAB PO SCH (21:01)
[2017-03-01] MEDS: ALPRAZolam 0.25 MG TAB PO PRN (21:01)
[2017-03-01] MEDS: GABAPENTIN 100 MG CAP PO SCH (21:02)
[2017-03-01] MEDS: INSULIN DETEMIR 100 UNITS/ML VIAL SQ SCH (21:13)
[2017-03-01] MEDS: MIRTAZAPINE ODT 15 MG TAB PO SCH (22:17)
[2017-03-02] VITALS: BP 136/72; PULSE 75; RESP 22; TEMP 97.6; O2SAT 93
[2017-03-02 04:00] VITALS: BP 140/61; PULSE 77; RESP 19; TEMP 97.4; O2SAT 95
[2017-03-02] MEDS: LEVOTHYROXINE SODIUM 100 MCG TAB PO SCH (05:18)
[2017-03-02 07:52] VITALS: PULSE 73
[2017-03-02 08:45] VITALS: BP 157/74; PULSE 73; RESP 20; TEMP 97.8; O2SAT 94
[2017-03-02] MEDS: DIGOXIN 0.125 MG TAB PO SCH (08:50)
[2017-03-02] MEDS: CARVEDILOL 6.25 MG TAB PO SCH ×2 (08:50→21:36)
[2017-03-02] MEDS: DOCUSATE SODIUM 50 MG/SENNA 8.6 MG TAB PO SCH ×2 (08:50→21:36)
[2017-03-02] MEDS: levETIRAcetam 500 MG TAB PO SCH ×2 (08:50→21:36)
[2017-03-02] MEDS: SODIUM CHLORIDE 0.9% FLUSH 10 ML FLUSH IV FLUSH SCH ×2 (08:50→21:00)
[2017-03-02] MEDS: LOSARTAN 25 MG TAB PO SCH (08:50)
[2017-03-02] MEDS: TOBRAMYCIN 0.3%/DEXAMETHASONE 0.1% OPHT SUSP 5 ML BTL EACH EYE SCH ×4 (08:52→21:00)
[2017-03-02] MEDS: INSULIN ASPART SUPPLEMENTAL SCALE SQ SCH ×4 (08:52→21:37)
[2017-03-02] MEDS: TOLTERODINE TARTRATE 4 MG CAP LA PO SCH (08:55)
[2017-03-02] MEDS: buPROPion HCL 100 MG TAB PO SCH (08:55)
[2017-03-02 09:01] LABS: INTERNATIONAL NORMALIZED RATIO 1.4 RATIO; PROTHROMBIN TIME - PATIENT 15.6 SEC (9.8-11.6)
[2017-03-02] MEDS ORDERED: TRAM50TA PO (09:50)
[2017-03-02] MEDS ORDERED: AMLO10 PO (09:50)
[2017-03-02] MEDS ORDERED: ALPR.25 PO (09:50)
[2017-03-02] MEDS ORDERED: LACTCHW3 CHEW (09:53)
[2017-03-02] MEDS ORDERED: CEFU1TAB18 PO (09:53)
--- NOTE | 2017-03-02 09:53 | HHI.DS ---
Discharge Summary Admission Date Feb 25, 2017 at 13:15 Discharge Date: Mar 03, 2017 Admitting Diagnosis AMS, UTI (1) Adjustment disorder with depressed mood ICD Code: F43.21 - Adjustment disorder with depressed mood (2) Conjunctivitis ICD Code: H10.9 - Unspecified conjunctivitis (3) Macular degeneration, age related, nonexudative ICD Code: H35.3190 - Nonexudative age-related macular degeneration, unspecified eye, stage unspecified (4) Transaminitis ICD Code: R74.0 - Nonspecific elevation of levels of transaminase and lactic acid dehydrogenase [LDH] Procedures none Brief History - From Admission 87-year-old female with history of Alzheimer's dementia, diabetes, CVA, HTN, HLD , Hypothyroidism, seizure disorder who was brought to the ED by ambulance from her group home for evaluation of depressed mental status. Upon arrival to the emergency department the patient was noted awake but drowsy. She complains of feeling lousy. She also complains of having lower abdominal pain. Denies having any urinary complaints. She does not quantify or qualify this pain. She denies chest pain. She says yes when asked if she has shortness of breath. Denies having cough. No fever or chills. Says she doesn't know why she is here. Says jayant is uslually walking with a walker at the group home, but now she feels tired and can't walk. She is alert and oriented by name, , place. History obtained from patient, records. No other complaints at this time. CBC/BMP: 03/01/17 0800 03/01/17 0800 Significant Findings Laboratory Tests Test 02/27/17 12:44 02/28/17 06:20 02/28/17 14:13 03/01/17 08:00 Prothrombin Time 16.3 SEC (9.8-11.6) 17.4 SEC (9.8-11.6) 18.1 SEC (9.8-11.6) Blood Urea Nitrogen 29 MG/DL (7-18) 27 MG/DL (7-18) Creatinine 1.04 MG/DL (0.50-1.00) 1.03 MG/DL (0.50-1.00) Random Glucose 296 MG/DL (74-106) 200 MG/DL (74-106) Sodium Level 135 MEQ/L (136-145) Potassium Level 5.4 MEQ/L (3.5-5.1) Estimat Glomerular Filtration Rate 50 ML/MIN (>89) 51 ML/MIN (>89) Red Blood Count 3.29 MIL/MM3 (4.00-5.30) Hemoglobin 10.6 GM/DL (11.6-15.3) Hematocrit 30.8 % (35.0-46.0) Test 03/02/17 08:16 Prothrombin Time 15.6 SEC (9.8-11.6) Imaging Last Impressions Chest X-Ray 02/27/17 0000 Signed Impressions: Service Date/Time: Monday, February 27, 2017 10:09 - CONCLUSION: No infiltrates seen. Alexis Diallo MD Head CT 02/24/17 0000 Signed Impressions: Service Date/Time: Friday, February 24, 2017 11:38 - CONCLUSION: 1. Diffuse cerebral atrophy. 2. Mild to moderate periventricular and subcortical white matter small vessel ischemic changes bilaterally. 3. No acute infarct, acute hemorrhage, mass effect or extra-axial fluid collections. Emmanuel Brown MD Abdomen/Pelvis CT 02/24/17 0000 Signed Impressions: Service Date/Time: Friday, February 24, 2017 11:45 - CONCLUSION: 1. Apparent dilatation of the main pancreatic duct in the region of the body and tail with focus of high density at the transition point raising the possibility of calcification or clip. Correlation with pancreatic enzymes may be helpful. 2. Uncomplicated sigmoid diverticulosis. 3. Multilevel spinal stenoses, degenerative changes and scoliosis of the lumbar spine. Emmanuel Brown MD PE at Discharge GENERAL: Elderly woman lying in bed EYES: mild eye injection noted and less secretions bilaterally. ENT: Nose without drainage. Airway patent. NECK: Trachea midline. CARDIOVASCULAR: Regular rate and rhythm without murmurs RESPIRATORY: Equal bilateral breath sounds with poor air movement. GASTROINTESTINAL: Abdomen soft, non-tender, nondistended. No guarding. MUSCULOSKELETAL: Extremities without edema.No calf tenderness. NEUROLOGICAL: Intermittently attentive. Able to answer questions and follow commands. Pt update on day of discharge In bed more awake and alert. No n/v/d/c. Denies fever or chills. No abd pain. Family at bedside, patient ate all her breakfast. Hospital Course UTI -Urine culture positive for proteus mirabilis -sensitive to Rocephin Possible early PNA -Chest x-ray reviewed minimal bibasilar patchiness poss mild developing infiltrates. Scoliosis of the thoracolumbar spine -Repeat chest x-ray as she is complaining of SOB today. -DuoNebs for poor air movement -Azithro/Rocephin, will DC azithromycin as patient has completed 5 days -IS every hour while awake -Supplemental O2 prn AMS -Likely 2/2 acute infection. Also concern for polypharmacy with Restoril recently added to patient's home medication regimen. Pt still very tired, doesn' t seem motivated to eat. - appreciate psych consult will decrease Remeron to 15 mg per there recommendations -CT head reviewed diffuse cerebral atrophy. No acute infarct, no hemorrhage. Mild to moderate periventricular and subcortical white matter vessel ischemic changes bilaterally. -CT abdomen and pelvis reviewed dilatation of the main pancreatic duct in the region of the body and tail focus of hyperdensity of the transition point raising the possibility of calcification or clip. Sigmoid diverticulosis. Multilevel spinal stenosis, degenerative changes and scoliosis of the lumbar spine. hypoglycemia- resolved DM Levemir dose to 15 units at bedtime (was on 40 units). Monitor blood sugars and PO intake. Continue to adjust Levemir dosing. Pt requires encouragement to eat Release Manager consult in place for recs. DONOVAN -Gentle hydration. Cr. 1.05 today -Follow renal function -Monitor for signs of volume overload Vision loss/conjunctivitis -ophthalmology evaluated the patient. Final report still pending, however per their note, " patient has had 1 month history of decreased vision in the left eye". prescription was ordered for tobradex. Appreciate assistance. f/u as an outpatient. pt w hx of dry macular degeneration and family aware that there is no treatment for this. Prophylaxis -On Warfarin Patient with elevation of AST/ALT and CT abdomen and pelvis 02/24/2017 reviewed and reveals apparent dilation of the main pancreatic duct in the region of the body and tail with focus of high density at the transition point reason the possibility of calcification or clip. Correlation with pancreatic enzymes may be helpful. Uncomplicated sigmoid diverticulosis. Multilevel spinal stenosis and degenerative changes and scoliosis of lumbar spine recommend GI follow up after DC Headache- mild Tylenol as needed for headache Nausea Zofran as needed for N/V Discharge Planning Family requesting hospice for evaluation. Consult hospice. DC to SNF or hospice. Plan to DC to SNF when arrangements done . Case management ff for DC plan . Pt Condition on Discharge: Stable Discharge Disposition: Discharge to SNF Discharge Time: > 30 minutes Discharge Instructions DIET: Follow Instructions for: Heart Healthy Diet Speech Therapy-Diet Recommends: Mechanical Soft Activities you can perform: Regular-No Restrictions Follow up Referrals: Gastroenterology - 1 Week PCP Follow-up - 2-3 Days New Medications: Cefuroxime (Ceftin) 250 Mg Tab 250 MG PO BID for infection for 3 Days, #6 TAB Lactobacillus Acidophilus (Lactinex) 1 Chew 1 TAB CHEW DAILY for Nutritional Supplement, #30 TAB 0 Refills Amlodipine (Norvasc) 10 Mg Tab 10 MG PO DAILY for Blood Pressure Management, #30 TAB Continued Medications: Acetaminophen (Tylenol) 325 Mg Tab 650 MG PO Q4H PRN for Pain/Discomfort/Temp >101, TAB 0 Refills Alprazolam (Xanax) 0.25 Mg Tab 0.25 MG PO TID PRN for ANXIETY, #20 TAB 0 Refills (This prescription has been renewed) Autvcukk-Htyjcniea-Zubdzkobxca Liq (Antacid Anti-Gas Regular Liq) 200-200-20 Mg/ 5 Ml Susp 30 ML PO Q4HR PRN for Indigestion/Heartburn, ML 0 Refills Take between meals or as directed. Shake well. Do not exceed 120 mL/24 hrs. Bisacodyl Supp (Dulcolax Supp) 10 Mg Supp 10 MG RECTAL DAILY PRN for IF NO RESULTS FROM MILK OF MAG, #12 SUPP 0 Refills Bupropion HCl (Bupropion HCl) 100 Mg Tab 50 MG PO DAILY for Control Depression, TAB 0 Refills Carvedilol (Coreg) 6.25 Mg Tab 6.25 MG PO BID, #60 TAB 0 Refills Take with meals Digoxin (Lanoxin) 125 Mcg Tablet 125 MCG PO DAILY for CAD/CHF Gabapentin (Neurontin) 100 Mg Cap 100 MG PO HS for Neuropathy Pain, #30 CAP 0 Refills Glucagon (Rdna) Inj Kit (Glucagen Hypokit Inj Kit) 1 Mg Kit 1 MG IM ONCE PRN for Hypoglycemic Episode, #1 KIT 0 Refills Insulin Aspart Inj (Novolog Inj) 1,000 Unit/10 Ml Vial 10 UNITS SQ Before Meals for Blood Sugar Management, #10 ML 0 Refills Insulin Glargine Inj (Lantus Inj) 1,000 Unit/10 Ml Vial 65 UNITS SQ HS for Blood Sugar Management, VIAL 0 Refills Levetiracetam (Keppra) 500 Mg Tab 500 MG PO BID for Control Seizures, #60 TAB 0 Refills Levothyroxine (Levothyroxine) 100 Mcg Tab 100 MCG PO DAILY for Thyroid, #30 TAB 0 Refills Loperamide (Imodium A-D) 2 Mg Capsule 4 MG PO INITIAL DOSE PRN for DIARRHEA, CAP 0 Refills After initial dose, give 1 cap (2mg) after each loose stool, NTE 8 caps/24hrs Losartan (Cozaar) 25 Mg Tab 25 MG PO DAILY for Blood Pressure Management, #30 TAB 0 Refills Magnesium Hydroxide Liq (Milk of Magnesia Liq) 400 Mg/5 Ml Susp 30 ML PO Q4HR PRN for CONSTIPATION, #1 BOTTLE 0 Refills Memantine-Donepezil (Namzaric) 28-10 Mg Cap 1 CAP PO HS for Alzheimer Dementia, #30 CAP 0 Refills Mirtazapine (Remeron) 30 Mg Tab 30 MG PO HS for Depression Control, #30 TAB 0 Refills Multiple Vitamins W/ Minerals (I-Argelia) 1,000-60-2 Tab 1 TAB PO DAILY for Nutritional Supplement Oxybutynin ER 24 HR (Ditropan XL 24 HR) 10 Mg Tab 10 MG PO DAILY for Urinary Symptom Managemen, #30 TAB 0 Refills Risperidone (Risperdal) 0.5 Mg Tab 0.5 MG PO HS, #30 TAB 0 Refills Sodium Phosphates (Enema Disposable) 19 Gram-7 Gram/118 Ml Jennifer 1 APPLIC RECTAL PRN for IF NO RESULTS FROM DULCOLAX Tramadol (Tramadol) 50 Mg Tab 50 MG PO BID PRN for PAIN, #20 TAB 0 Refills (This prescription has been renewed ) Warfarin (Warfarin) 5 Mg Tab 5 MG PO SuMoWeTh for Blood Clot Prevention, #30 TAB 0 Refills Take 1 tablet (5mg) on Sunday,Sunday,Sunday,,Sunday and Sunday Warfarin (Warfarin) 10 Mg Tab 10 MG PO SUNDAY for Blood Clot Prevention, #30 TAB 0 Refills Discontinued Medications: Lisinopril (Lisinopril) 10 Mg Tab 10 MG PO DAILY, #30 TAB 0 Refills Nitrofurantoin Monohydrate Macrocrystals (Macrobid) 100 Mg Cap 100 MG PO BID for UTI for 7 Days, #14 CAP 0 Refills Dimple Fung MD Mar 02, 2017 09:53
[2017-03-02] MEDS: cefTRIAXone INJ 1,000 MG in SODIUM CHLORIDE 0.9% INJ 100 ML IV SCH (10:01)
[2017-03-02 11:25] VITALS: BP 154/69; PULSE 64; RESP 18; TEMP 97.6; O2SAT 96
--- NOTE | 2017-03-02 12:32 | HHI.PR ---
Subjective Remarks Answers to some questions has pain on all her body when asked. Patient with dementia. Deneis cp, sob, n/v/d/c. Family is requesting hospice evaluation. Objective Vitals Vital Signs Date Time Temp Pulse Resp B/P (MAP) Pulse Ox O2 Delivery O2 Flow Rate FiO2 03/02/17 11:25 97.6 64 18 154/69 (97) 96 03/02/17 08:45 97.8 73 20 157/74 (101) 94 03/02/17 04:00 Room Air 03/02/17 04:00 97.4 77 19 140/61 (87) 95 03/02/17 00:00 Room Air 03/02/17 00:00 97.6 75 22 136/72 (93) 93 03/01/17 22:08 96 03/01/17 21:15 Room Air 03/01/17 20:00 97.5 79 20 166/71 (102) 98 03/01/17 20:00 75 03/01/17 16:00 98.8 80 16 139/64 (89) 95 I/O 03/01/17 03/01/17 03/01/17 03/02/17 03/02/17 03/02/17 07:00 15:00 23:00 07:00 15:00 23:00 Intake Total 615 ml 350 ml 500 ml 641 ml Balance 615 ml 350 ml 500 ml 641 ml Intake Oral 240 ml 500 ml 240 ml IV Total 375 ml 350 ml 401 ml # Voids 4 3 6 # Bowel Movements 0 1 1 Result Diagram: 03/01/17 0800 03/01/17 0800 Imaging Last Impressions Chest X-Ray 02/27/17 0000 Signed Impressions: Service Date/Time: Monday, February 27, 2017 10:09 - CONCLUSION: No infiltrates seen. Alexis Diallo MD Head CT 02/24/17 0000 Signed Impressions: Service Date/Time: Friday, February 24, 2017 11:38 - CONCLUSION: 1. Diffuse cerebral atrophy. 2. Mild to moderate periventricular and subcortical white matter small vessel ischemic changes bilaterally. 3. No acute infarct, acute hemorrhage, mass effect or extra-axial fluid collections. Emmanuel Brown MD Abdomen/Pelvis CT 02/24/17 0000 Signed Impressions: Service Date/Time: Friday, February 24, 2017 11:45 - CONCLUSION: 1. Apparent dilatation of the main pancreatic duct in the region of the body and tail with focus of high density at the transition point raising the possibility of calcification or clip. Correlation with pancreatic enzymes may be helpful. 2. Uncomplicated sigmoid diverticulosis. 3. Multilevel spinal stenoses, degenerative changes and scoliosis of the lumbar spine. Emmanuel Brown MD Objective Remarks GENERAL: Elderly female, pleasantly confused, in bed, alert, disoriented takes time to answer questions, doesn't appear in acute distress, appears sleepy and tired. CARDIOVASCULAR: Regular rate and rhythm. RESPIRATORY: No accessory muscle use. Clear to auscultation. Breath sounds equal bilaterally. GASTROINTESTINAL: Abdomen soft, non-tender, nondistended. Hepatic and splenic margins not palpable. MUSCULOSKELETAL: Extremities without clubbing, cyanosis, or edema. No obvious deformities. NEUROLOGICAL: Awake and alert. No obvious cranial nerve deficits. Motor grossly within normal limits. Barely speaks a few words, mostly answers questions with yes/no. PSYCHIATRIC: Flat affect. A/P Assessment and Plan UTI -Urine culture positive for proteus mirabilis -sensitive to Rocephin Possible early PNA -Chest x-ray reviewed minimal bibasilar patchiness poss mild developing infiltrates. Scoliosis of the thoracolumbar spine -Repeat chest x-ray as she is complaining of SOB today. -DuoNebs for poor air movement -Azithro/Rocephin, will DC azithromycin as patient has completed 5 days -IS every hour while awake -Supplemental O2 prn AMS -Likely 2/2 acute infection. Also concern for polypharmacy with Restoril recently added to patient's home medication regimen. Pt still very tired, doesn' t seem motivated to eat. - appreciate psych consult will decrease Remeron to 15 mg per there recommendations -CT head reviewed diffuse cerebral atrophy. No acute infarct, no hemorrhage. Mild to moderate periventricular and subcortical white matter vessel ischemic changes bilaterally. -CT abdomen and pelvis reviewed dilatation of the main pancreatic duct in the region of the body and tail focus of hyperdensity of the transition point raising the possibility of calcification or clip. Sigmoid diverticulosis. Multilevel spinal stenosis, degenerative changes and scoliosis of the lumbar spine. hypoglycemia- resolved DM Levemir dose to 15 units at bedtime (was on 40 units). Monitor blood sugars and PO intake. Continue to adjust Levemir dosing. Pt requires encouragement to eat Pulp Maker consult in place for recs. DONOVAN -Gentle hydration. Cr. 1.05 today -Follow renal function -Monitor for signs of volume overload Vision loss/conjunctivitis -ophthalmology evaluated the patient. Final report still pending, however per their note, " patient has had 1 month history of decreased vision in the left eye". prescription was ordered for tobradex. Appreciate assistance. f/u as an outpatient. pt w hx of dry macular degeneration and family aware that there is no treatment for this. Prophylaxis -On Warfarin Patient with elevation of AST/ALT and CT abdomen and pelvis 02/24/2017 reviewed and reveals apparent dilation of the main pancreatic duct in the region of the body and tail with focus of high density at the transition point reason the possibility of calcification or clip. Correlation with pancreatic enzymes may be helpful. Uncomplicated sigmoid diverticulosis. Multilevel spinal stenosis and degenerative changes and scoliosis of lumbar spine recommend GI follow up after DC Headache- mild Tylenol as needed for headache Nausea Zofran as needed for N/V Discharge Planning Family requesting hospice for evaluation. Consult hospice. DC to SNF or hospice. Discussed with patient, nurse Dimple Fung MD Mar 02, 2017 12:32
[2017-03-02] MEDS ORDERED: WARFARIN SOD 2.5 MG TAB PO ONE (16:00)
[2017-03-02] MEDS: WARFARIN SOD 5 MG TAB PO SCH (16:29)
[2017-03-02] MEDS: SODIUM CHLOR 0.9% 1000 ML INJ 1,000 ML IV SCH (16:30)
[2017-03-02 20:00] VITALS: BP 170/78; PULSE 72; PULSE 80; RESP 19; TEMP 98.7; O2SAT 96
[2017-03-02] MEDS: MIRTAZAPINE ODT 15 MG TAB PO SCH (21:36)
[2017-03-02] MEDS: risperiDONE 0.5 MG TAB PO SCH (21:36)
[2017-03-02] MEDS: GABAPENTIN 100 MG CAP PO SCH (21:36)
[2017-03-02] MEDS: INSULIN DETEMIR 100 UNITS/ML VIAL SQ SCH (21:37)
[2017-03-02] MEDS: ALPRAZolam 0.25 MG TAB PO PRN (21:43)
[2017-03-03] VITALS: BP 158/62; PULSE 76; RESP 18; TEMP 99; O2SAT 94
[2017-03-03 04:00] VITALS: BP 148/62; PULSE 75; RESP 20; TEMP 98.6; O2SAT 94
[2017-03-03] MEDS: LEVOTHYROXINE SODIUM 100 MCG TAB PO SCH (05:23)
[2017-03-03 07:55] LABS: INTERNATIONAL NORMALIZED RATIO 1.4 RATIO; PROTHROMBIN TIME - PATIENT 15.9 SEC (9.8-11.6)
[2017-03-03 09:06] VITALS: BP 141/75; PULSE 72; RESP 18; TEMP 98.1; O2SAT 95
[2017-03-03] MEDS: INSULIN ASPART SUPPLEMENTAL SCALE SQ SCH ×2 (09:10→12:45)
[2017-03-03] MEDS: DOCUSATE SODIUM 50 MG/SENNA 8.6 MG TAB PO SCH (09:13)
[2017-03-03] MEDS: TOLTERODINE TARTRATE 4 MG CAP LA PO SCH (09:13)
[2017-03-03] MEDS: DIGOXIN 0.125 MG TAB PO SCH (09:13)
[2017-03-03] MEDS: buPROPion HCL 100 MG TAB PO SCH (09:16)
[2017-03-03] MEDS: levETIRAcetam 500 MG TAB PO SCH (09:16)
[2017-03-03] MEDS: LOSARTAN 25 MG TAB PO SCH (09:17)
[2017-03-03] MEDS: CARVEDILOL 6.25 MG TAB PO SCH (09:17)
[2017-03-03] MEDS: TOBRAMYCIN 0.3%/DEXAMETHASONE 0.1% OPHT SUSP 5 ML BTL EACH EYE SCH (09:18)
[2017-03-03] MEDS: SODIUM CHLORIDE 0.9% FLUSH 10 ML FLUSH IV FLUSH SCH (09:18)
[2017-03-03 09:20] VITALS: O2SAT 94
--- NOTE | 2017-03-03 10:15 | HHI.PR ---
Subjective Remarks In bed more awake and alert. No n/v/d/c. Denies fever or chills. No abd pain. Family at bedside, patient ate all her breakfast. Objective Vitals Vital Signs Date Time Temp Pulse Resp B/P (MAP) Pulse Ox O2 Delivery O2 Flow Rate FiO2 03/03/17 09:06 98.1 72 18 141/75 (97) 95 03/03/17 04:00 98.6 75 20 148/62 (90) 94 03/03/17 00:00 99.0 76 18 158/62 (94) 94 03/02/17 21:40 Room Air 03/02/17 21:31 21 03/02/17 20:00 72 03/02/17 20:00 98.7 80 19 170/78 (108) 96 03/02/17 12:42 Room Air 21 03/02/17 11:25 97.6 64 18 154/69 (97) 96 I/O 03/02/17 03/02/17 03/02/17 03/03/17 03/03/17 03/03/17 07:00 15:00 23:00 07:00 15:00 23:00 Intake Total 641 ml 100 ml 360 ml 565 ml Balance 641 ml 100 ml 360 ml 565 ml Intake Oral 240 ml 360 ml IV Total 401 ml 100 ml 565 ml # Voids 6 2 # Bowel Movements 1 0 Result Diagram: 03/01/17 0800 03/01/17 0800 Objective Remarks GENERAL: Elderly female, pleasantly confused, in bed, alert, disoriented takes time to answer questions, doesn't appear in acute distress, appears sleepy and tired. CARDIOVASCULAR: Regular rate and rhythm. RESPIRATORY: No accessory muscle use. Clear to auscultation. Breath sounds equal bilaterally. GASTROINTESTINAL: Abdomen soft, non-tender, nondistended. Hepatic and splenic margins not palpable. MUSCULOSKELETAL: Extremities without clubbing, cyanosis, or edema. No obvious deformities. NEUROLOGICAL: Awake and alert. No obvious cranial nerve deficits. Motor grossly within normal limits. Barely speaks a few words, mostly answers questions with yes/no. PSYCHIATRIC: Flat affect. A/P Assessment and Plan UTI -Urine culture positive for proteus mirabilis -sensitive to Rocephin Possible early PNA -Chest x-ray reviewed minimal bibasilar patchiness poss mild developing infiltrates. Scoliosis of the thoracolumbar spine -Repeat chest x-ray as she is complaining of SOB today. -DuoNebs for poor air movement -Azithro/Rocephin, will DC azithromycin as patient has completed 5 days -IS every hour while awake -Supplemental O2 prn AMS -Likely 2/2 acute infection. Also concern for polypharmacy with Restoril recently added to patient's home medication regimen. Pt still very tired, doesn' t seem motivated to eat. - appreciate psych consult will decrease Remeron to 15 mg per there recommendations -CT head reviewed diffuse cerebral atrophy. No acute infarct, no hemorrhage. Mild to moderate periventricular and subcortical white matter vessel ischemic changes bilaterally. -CT abdomen and pelvis reviewed dilatation of the main pancreatic duct in the region of the body and tail focus of hyperdensity of the transition point raising the possibility of calcification or clip. Sigmoid diverticulosis. Multilevel spinal stenosis, degenerative changes and scoliosis of the lumbar spine. hypoglycemia- resolved DM Levemir dose to 15 units at bedtime (was on 40 units). Monitor blood sugars and PO intake. Continue to adjust Levemir dosing. Pt requires encouragement to eat Facilities Director consult in place for recs. DONOVAN -Gentle hydration. Cr. 1.05 today -Follow renal function -Monitor for signs of volume overload Vision loss/conjunctivitis -ophthalmology evaluated the patient. Final report still pending, however per their note, " patient has had 1 month history of decreased vision in the left eye". prescription was ordered for tobradex. Appreciate assistance. f/u as an outpatient. pt w hx of dry macular degeneration and family aware that there is no treatment for this. Prophylaxis -On Warfarin Patient with elevation of AST/ALT and CT abdomen and pelvis 02/24/2017 reviewed and reveals apparent dilation of the main pancreatic duct in the region of the body and tail with focus of high density at the transition point reason the possibility of calcification or clip. Correlation with pancreatic enzymes may be helpful. Uncomplicated sigmoid diverticulosis. Multilevel spinal stenosis and degenerative changes and scoliosis of lumbar spine recommend GI follow up after DC Headache- mild Tylenol as needed for headache Nausea Zofran as needed for N/V Discharge Planning Family requesting hospice for evaluation. Consult hospice. DC to SNF or hospice. Plan to DC to SNF when arrangements done . Case management ff for DC plan . Discussed with patient, nurse, family at bedside Dimple Fung MD Mar 03, 2017 10:15
[2017-03-03 12:11] VITALS: BP 152/74; PULSE 71; RESP 20; TEMP 97.9; O2SAT 96
[2017-03-03] MEDS: SODIUM CHLOR 0.9% 1000 ML INJ 1,000 ML IV SCH (12:33)
[2017-03-03] MEDS: cefTRIAXone INJ 1,000 MG in SODIUM CHLORIDE 0.9% INJ 100 ML IV SCH (12:46)
[2017-03-03 12:50] VITALS: PULSE 67
[2017-03-03] MEDS ORDERED: WARFARIN SOD 2.5 MG TAB PO ONE (16:00)
--- NOTE | 2017-03-09 09:42 | PQ ---
Physician Query Response Document PATIENT: BURTON CORONA : [id number] ADMIT DATE: 02/25/2017 1:15 PM DISCH DATE: 03/03/2017 2:39 PM RESPONDING PROVIDER #: [email or web address] QUERY TEXT: Conflicting Documentation Clarification A single mention or documentation of multiple diagnoses for the same clinical presentation appears in the record. Please clarify the diagnosis/diagnoses. Altered Mental Status vs acute Encephalopathy. If diagnosis is encephalopathy, please clarify type (e.g. toxic, metabolic or other form). Please also document if the condition is: -- Confirmed and current -- Confirmed, treated and resolved -- Ruled out -- Other, please specify If you have any additional questions/comments and/or concerns, please do not hesitate to reach out to the [facility]I/Coding Hotline, Ext. [phone]. The patient's Clinical Indicators include: Discharge Summary documents diagnosis of: AMS - Likely 2/2 acute infection. Patient diagnosed with both UTI and probable pneumonia. H Acute encephalopathy 2/2 infection Pneumonia UTI DONOVAN/ dehydration Query created by: Lili Cabrera on 03/07/2017 10:41 AM RESPONSE TEXT: Add to diagnosis Acute encephalopathy multifactorial, 2/2 infection - Pneumonia, UTI , DOONVAN/ dehydrati on Electronically signed by: Dimple Fung MD 03/09/2017 9:37 AM
== END 2017-03-03 14:39 | disposition hospice, inpatient (51) | DRG 70 ==
LOC: NEPE 09:28 → NEDA 12:47 → NEPHCDU 14:08 → N04A 20:25 → OBSVTOIN 02-25 13:15
PROVIDERS: ADMIT Hospitalist; ATTEND Hospitalist
DX: G93.49 Other encephalopathy (principal); J18.9 Pneumonia, unspecified organism; N17.9 Acute kidney failure, unspecified; N39.0 Urinary tract infection, site not specified; E11.649 Type 2 diabetes mellitus with hypoglycemia without coma; E86.0 Dehydration; G30.9 Alzheimer's disease, unspecified; F02.80 Dementia in other diseases classified elsewhere, unspecified severity, without behavioral disturbance, psychotic disturbance, mood disturbance, and anxiety; B96.4 Proteus (mirabilis) (morganii) as the cause of diseases classified elsewhere; Z79.4 Long term (current) use of insulin; Z86.73 Personal history of transient ischemic attack (TIA), and cerebral infarction without residual deficits; Z79.01 Long term (current) use of anticoagulants; E03.9 Hypothyroidism, unspecified; E78.5 Hyperlipidemia, unspecified; G40.909 Epilepsy, unspecified, not intractable, without status epilepticus; F43.21 Adjustment disorder with depressed mood; H35.3190 Nonexudative age-related macular degeneration, unspecified eye, stage unspecified; H10.9 Unspecified conjunctivitis; I10 Essential (primary) hypertension; R74.0 Nonspecific elevation of levels of transaminase and lactic acid dehydrogenase [LDH]; M41.9 Scoliosis, unspecified; K57.30 Diverticulosis of large intestine without perforation or abscess without bleeding; Z90.5 Acquired absence of kidney; Z96.653 Presence of artificial knee joint, bilateral
CPT/HCPCS: 70450; 71010; 74177; 76937; 80048; 80053; 81001; 82948; 83605; 83690; 85025; 85610; 85730; 87040; 87077; 87086; 87186; 87804; 93005; 94150; 94640; 94664; 96365; 96367; G0378; J0360; J0456; J0696; J1815; J7030; J7050; P9612; Q9967